=== PATIENT | female | born 1975 | race Caucasian/White ===

== ENCOUNTER 2017-03-03 11:22 | Inpatient (IN) | payer OTHER ==
[~2017-03-03] VITALS: Ht 170.1 cm; Wt 102.7 kg
[~2017-03-03 11:22] MED LIST: ABILIFY10 MG PO; ADIPEX-P37.5 MG PO; ALBUTEROL0.09 MG/A2 IH; ALEVE220 MG PO; AMBIEN10 M1 PO; AMOXICILLIN500 MG PO; ANAPROX DS550 MG PO; ATIVAN1 MG PO; AUGMENTIN 875 M1 TA1 PO; AUGMENTIN 875 M1 TAB PO; AUGMENTIN 875875 MG PO; BACTRIM DS 8001 TA1 PO; BRIN10TA PO; BUSPAR10 MG PO; BUSPAR15 MG PO; CALCIUM 600600 M2 PO; CALCIUM1 CAP PO; CEFTIN500 MG PO; CIPRO250 MG PO; CIPRO500 MG PO; CORTISPORIN SUS10 ML OT; DAYPRO600 M1 PO; DEPAKOTE500 MG PO; DIAZEPAM2 MG PO; ELIMITE 5%60 GM PO; ELMIRON100 MG PO; FIORINAL W/CODE1 TAB PO; FLAGYL250 MG PO; FLAGYL500 MG; FLAGYL500 MG PO; FLEXERIL5 MG PO; FLONASE 0.05% 121 EA NAS; Fioricet 325 MG1 TAB PO; HYCODAN 1.5 MG480 M1 PO; HYDROCODONE BIT1 T11 PO; IBU-8800 MG PO; IBU800 MG PO; IMITREX50 MG PO; K-DUR 20MEQ20 MEQ PO; KEFLEX500 MG PO; KEPPRA1000 MG PO; KEPPRA500 MG PO; LASIX40 MG PO; LOMOTIL 0.025 M1 TA1 PO; LOPERAMIDE2 MG PO; MACROBID100 M1 PO; MIRENA52 MG IU; MIRTAZAPINE30 M2 PO; MOTRIN600 MG PO; MOTRIN800 MG PO; NAPROSYN500 MG PO; NEO-SYNEPHRINE15 M3 NAS; NEURONTIN300 MG PO; NEURONTIN400 MG PO; NICODERM7 MG/24 HR TD; NORFLEX100 MG; NORFLEX100 MG PO; PERCOCET 325 MG1 TA2 PO; PERCOCET 325 MG1 TA6 PO; PHENERGAN W/DM120 ML PO; PREDNISONE10 MG PO; PREDNISONE20 MG PO; PREVACID SOLUTA30 MG PO; PREVACID30 M1 PO; PREVACID30 M2 PO; PREVACID30 MG PO; PROTONIX40 MG PO; PYRIDIUM200 MG PO; Phenergan25 MG PO; ROBAXIN500 MG PO; ROBAXIN750 MG PO; SAPHRIS10 M1 SL; SAPHRIS10 MG SL; SAPHRIS2.5 MG SL; SAPHRIS5 M1 SL; TRAMADOL HCL50 MG PO; ULTRAM50 MG PO; VALIUM10 MG; VALIUM10 MG PO; VALIUM5 MG PO; VENTOLIN H0.09 MG/AC INH; VIBRAMYCIN100 MG PO; VICODIN 5-3001 EACH PO; VICODIN 5/500 505 MG; VICODIN 5/500 505 MG PO; VICODIN 500 MG-1 TAB PO; VICODIN ES 7501 TAB PO; VISTARIL25 M1 PO; VISTARIL50 MG PO; VITAMIN D50000 I2 PO; VITAMIN D50000 I3 PO; VOLTAREN50 M1 PO; VYVANSE30 MG PO; ZITHROMAX Z PA250 MG PO; ZITHROMAX250 MG PO; ZITHROMAX500 MG PO; ZOFRAN ODT4 MG PO; ZOFRAN ODT4 MG SL; ZOFRAN4 MG PO; ZOLOFT100 MG PO; Zofran4 MG PO
[2017-03-03 11:45] VITALS: BP 138/87
[2017-03-03 12:19] LABS: BILIRUBIN NEGATIVE (NEGATIVE); BLOOD TRACE-LYSED (NEGATIVE); CLARITY CLOUDY (CLEAR); COLOR YELLOW (YELLOW); GLUCOSE NEGATIVE (NEGATIVE); KETONE TRACE (NEGATIVE); LEUKO ESTERASE 1+ (NEGATIVE); NITRITE NEGATIVE (NEGATIVE); PROTEIN NEGATIVE (NEGATIVE); UROBILINOGEN 0.2 E.U./dl (0.2-1.0)
[2017-03-03 12:22] LABS: BASO # 0.1 10*3/uL (0.0-0.1); BASO % 0.6 % (0.0-1.0); EOS # 0.2 10*3/uL (0.0-0.4); EOS % 2.2 % (1.0-4.0); HEMATOCRIT 41.3 % (37.0-47.0); HEMOGLOBIN 13.6 g/dl (12.0-16.0); LYMPH # 3.4 10*3/uL (1.3-4.4); LYMPH % 37.9 % (27.0-41.0); MEAN CORPUSCULAR HGB 29.3 pg (27.0-31.0); MEAN CORPUSCULAR HGB CONC 32.9 g/dl (33.0-37.0); MEAN PLATELET VOLUME 12.4 fl (9.6-12.3); MONO # 0.6 10*3/uL (0.1-1.0); MONO % 6.6 % (3.0-9.0); NEUT # 4.7 10*3/uL (2.3-7.9); NEUT % 52.4 % (47.0-73.0); PLATELET COUNT AUTOMATED 211 10*3/uL (130-400); RED BLOOD COUNT 4.64 10*6/uL (4.10-5.10); WHITE BLOOD COUNT 9.1 10*3/uL (4.8-10.8)
[2017-03-03 12:39] LABS: ALBUMIN 3.4 gm/dl (3.1-4.5); ALKALINE PHOSPHATASE 57 U/L (45-117); BILIRUBIN, TOTAL 0.3 mg/dl (0.2-1.0); BUN 12 mg/dl (7-24); C-REACTIVE PROTEIN 0.68 MG/DL (0-0.3); CARBON DIOXIDE 27 mmol/L (21-32); CHLORIDE 108 mmol/L (98-107); EST GLOM FILT AFRICAN AMERICAN > 60 ml/min; GLUCOSE 99 mg/dL (65-99); POTASSIUM 4.4 mmol/L (3.5-5.1); SGOT/AST 8 IU/L (3-35); SGPT/ALT 17 U/L (12-78); SODIUM 142 mmol/L (136-145)
[2017-03-03 12:44] LABS: BACTERIA 2+; EPITHELIAL CELLS 20-25; URINE REFLEX COMMENT YES (NO)
[2017-03-03] MEDS ORDERED: POTASSIUM CHLO20 ME4 PO (13:50)
[2017-03-03] MEDS ORDERED: TRINTELLIX20 MG PO (13:50)
[2017-03-03] MEDS ORDERED: VITAMIN D50000 I3 PO (13:50)
[2017-03-03 13:51] VITALS: BP 114/53
[2017-03-03] MEDS ORDERED: AMITRIPTYLINE25 MG PO (13:51)
[2017-03-03 17:11] VITALS: BP 129/81
[2017-03-03 20:00] VITALS: BP 119/72
[2017-03-04] VITALS: BP 126/77
[2017-03-04 04:31] VITALS: BP 121/77
[2017-03-04 07:42] LABS: BASO # 0.1 10*3/uL (0.0-0.1); BASO % 0.6 % (0.0-1.0); EOS # 0.2 10*3/uL (0.0-0.4); EOS % 2.8 % (1.0-4.0); HEMOGLOBIN 12.7 g/dl (12.0-16.0); LYMPH # 3.4 10*3/uL (1.3-4.4); MEAN CELL VOLUME 88.2 fl (81.0-99.0); MEAN CORPUSCULAR HGB 28.7 pg (27.0-31.0); MEAN CORPUSCULAR HGB CONC 32.6 g/dl (33.0-37.0); MEAN PLATELET VOLUME 12.7 fl (9.6-12.3); MONO # 0.5 10*3/uL (0.1-1.0); MONO % 6.1 % (3.0-9.0); NEUT % 49.1 % (47.0-73.0); PLATELET COUNT AUTOMATED 187 10*3/uL (130-400); RED BLOOD COUNT 4.42 10*6/uL (4.10-5.10); RED CELL DISTRI WIDTH 12.9 % (0-14.5); WHITE BLOOD COUNT 8.2 10*3/uL (4.8-10.8)
[2017-03-04 07:58] LABS: PROTHROMBIN TIME 10.7 SECONDS (9.0-12.4)
[2017-03-04 08:00] VITALS: BP 138/64
[2017-03-04 08:00] LABS: CHLORIDE 105 mmol/L (98-107); SODIUM 139 mmol/L (136-145)
[2017-03-04 08:16] LABS: BUN 7 mg/dl (7-24); CARBON DIOXIDE 28 mmol/L (21-32); CHOLESTEROL 209 mg/dL (<200); EST GLOM FILT AFRICAN AMERICAN > 60 ml/min; FREE T4 0.85 ng/dl (0.76-1.46); GLUCOSE 90 mg/dL (65-99); HDL CHOLESTEROL 31 mg/dl (40-60); TRIGLYCERIDES 482 mg/dl (<150)
[2017-03-04 08:19] LABS: POTASSIUM 3.4 mmol/L (3.5-5.1)
[2017-03-04 12:00] VITALS: BP 128/78
[2017-03-04 16:28] VITALS: BP 114/64
[2017-03-04 20:00] VITALS: BP 120/62
[2017-03-05] VITALS: BP 109/52
[2017-03-05 06:29] LABS: BUN 13 mg/dl (7-24); CARBON DIOXIDE 28 mmol/L (21-32); CHLORIDE 108 mmol/L (98-107); EST GLOM FILT AFRICAN AMERICAN > 60 ml/min; GLUCOSE 106 mg/dL (65-99); POTASSIUM 4.2 mmol/L (3.5-5.1); SODIUM 141 mmol/L (136-145)
[2017-03-05 08:00] VITALS: BP 109/71
[2017-03-05] MEDS ORDERED: D-1000 185 MG-11 TAB PO (11:58)
[2017-03-05] MEDS ORDERED: SIMVASTATIN40 MG PO (11:58)
[2017-03-05] MEDS ORDERED: FLAGYL500 MG PO (11:58)
[2017-03-05] MEDS ORDERED: LEVAQUIN750 M1 PO (11:58)
[2017-03-05 12:00] VITALS: BP 136/78
[2017-03-05] MEDS ORDERED: NORCO 5-325 TA1 EACH PO (14:47)
== END 2017-03-05 15:22 | disposition home or self-care (01) | DRG 392 ==
LOC: ED 11:22 → 5E 15:19 → EDHOLD 15:19 → 5E 16:27
PROVIDERS: Emergency Medicine; Internal Medicine Hospice and Palliative Medicine
DX: K57.32 Diverticulitis of large intestine without perforation or abscess without bleeding (principal); E44.0 Moderate protein-calorie malnutrition; E87.8 Other disorders of electrolyte and fluid balance, not elsewhere classified; K76.0 Fatty (change of) liver, not elsewhere classified; F31.89 Other bipolar disorder; F12.10 Cannabis abuse, uncomplicated; G40.909 Epilepsy, unspecified, not intractable, without status epilepticus; F17.200 Nicotine dependence, unspecified, uncomplicated; M54.5 Low back pain; K21.9 Gastro-esophageal reflux disease without esophagitis; N83.201 Unspecified ovarian cyst, right side; F41.1 Generalized anxiety disorder; N30.10 Interstitial cystitis (chronic) without hematuria; E55.9 Vitamin D deficiency, unspecified; Z90.710 Acquired absence of both cervix and uterus; Z98.51 Tubal ligation status; Z84.1 Family history of disorders of kidney and ureter; Z82.49 Family history of ischemic heart disease and other diseases of the circulatory system; Z82.61 Family history of arthritis; Z88.1 Allergy status to other antibiotic agents; Z79.899 Other long term (current) drug therapy; Z71.6 Tobacco abuse counseling; Z68.35 Body mass index [BMI] 35.0-35.9, adult

== ENCOUNTER 2017-03-13 11:03 | Emergency (ER) | payer OTHER ==
[~2017-03-13] VITALS: Ht 170.1 cm; Wt 102.5 kg
[~2017-03-13 11:03] MED LIST changes: +AMITRIPTYLINE25 MG PO; +D-1000 185 MG-11 TAB PO; +LEVAQUIN750 M1 PO; +NORCO 5-325 TA1 EACH PO; +POTASSIUM CHLO20 ME4 PO; +SIMVASTATIN40 MG PO; +TRINTELLIX20 MG PO
[2017-03-13 11:15] VITALS: BP 119/57
[2017-03-13] MEDS ORDERED: NYSTATIN100000 U/M PO (11:38)
== END 2017-03-13 11:49 | disposition home or self-care (01) ==
LOC: ED 11:03
DX: B37.0 Candidal stomatitis (principal); F17.200 Nicotine dependence, unspecified, uncomplicated; Z90.710 Acquired absence of both cervix and uterus; Z98.51 Tubal ligation status; Z98.890 Other specified postprocedural states; Z88.1 Allergy status to other antibiotic agents

== ENCOUNTER 2017-05-10 11:38 | Emergency (ER) | payer OTHER ==
[~2017-05-10] VITALS: Wt 107.0 kg
[~2017-05-10 11:38] MED LIST changes: +NYSTATIN100000 U/M PO
[2017-05-10 11:43] VITALS: BP 135/87
[2017-05-10 12:01] LABS: BASO % 0.4 % (0.0-1.0); EOS # 0.2 10*3/uL (0.0-0.4); EOS % 1.7 % (1.0-4.0); HEMATOCRIT 40.7 % (37.0-47.0); HEMOGLOBIN 13.3 g/dl (12.0-16.0); LYMPH # 3.1 10*3/uL (1.3-4.4); LYMPH % 30.1 % (27.0-41.0); MEAN CELL VOLUME 88.3 fl (81.0-99.0); MEAN CORPUSCULAR HGB 28.9 pg (27.0-31.0); MEAN CORPUSCULAR HGB CONC 32.7 g/dl (33.0-37.0); MEAN PLATELET VOLUME 13.1 fl (9.6-12.3); MONO # 0.7 10*3/uL (0.1-1.0); NEUT # 6.3 10*3/uL (2.3-7.9); NEUT % 60.4 % (47.0-73.0); PLATELET COUNT AUTOMATED 193 10*3/uL (130-400); RED BLOOD COUNT 4.61 10*6/uL (4.10-5.10); RED CELL DISTRI WIDTH 13.2 % (0-14.5); WHITE BLOOD COUNT 10.4 10*3/uL (4.8-10.8)
[2017-05-10 12:17] LABS: ALBUMIN 3.3 gm/dl (3.1-4.5); ALKALINE PHOSPHATASE 64 U/L (45-117); BILIRUBIN, TOTAL 0.2 mg/dl (0.2-1.0); BUN 10 mg/dl (7-24); CARBON DIOXIDE 27 mmol/L (21-32); CHLORIDE 106 mmol/L (98-107); EST GLOM FILT AFRICAN AMERICAN > 60 ml/min; GLUCOSE 96 mg/dL (65-99); POTASSIUM 4.6 mmol/L (3.5-5.1); SGOT/AST 8 IU/L (3-35); SGPT/ALT 16 U/L (12-78); SODIUM 140 mmol/L (136-145); TOTAL PROTEIN 6.9 gm/dL (6.4-8.2)
[2017-05-10] MEDS ORDERED: ZOFRAN4 MG PO (13:38)
[2017-05-10] MEDS ORDERED: NAPROSYN500 MG PO (13:38)
[2017-05-10] MEDS ORDERED: LOMOTIL 0.025 M1 TA1 PO (13:38)
== END 2017-05-10 14:32 | disposition home or self-care (01) ==
LOC: ED 11:38
PROVIDERS: Nurse Practitioner Family
DX: R19.7 Diarrhea, unspecified (principal); B34.9 Viral infection, unspecified; R03.0 Elevated blood-pressure reading, without diagnosis of hypertension; F17.200 Nicotine dependence, unspecified, uncomplicated; F12.10 Cannabis abuse, uncomplicated; Z98.51 Tubal ligation status; Z90.710 Acquired absence of both cervix and uterus; Z98.890 Other specified postprocedural states; Z79.899 Other long term (current) drug therapy; Z88.1 Allergy status to other antibiotic agents

== ENCOUNTER 2017-05-17 10:45 | Emergency (ER) | payer OTHER ==
[~2017-05-17] VITALS: Ht 170.1 cm; Wt 101.2 kg
[2017-05-17] MEDS ORDERED: METRONIDAZOLE500 M1 PO (11:01)
[2017-05-17 11:02] VITALS: BP 114/76
[2017-05-17] MEDS ORDERED: CIPRO250 MG PO (11:02)
[2017-05-17] MEDS ORDERED: ALBUTEROL2.5 MG/0.5 INH (11:18)
[2017-05-17] MEDS ORDERED: MEDROL DOSEPAK4 MG PO (11:18)
[2017-05-17] MEDS ORDERED: PEPCID20 MG PO (11:18)
== END 2017-05-17 11:34 | disposition home or self-care (01) ==
LOC: ED 10:45
DX: T78.40XA Allergy, unspecified, initial encounter (principal); G89.29 Other chronic pain; M54.5 Low back pain; G40.909 Epilepsy, unspecified, not intractable, without status epilepticus; K57.32 Diverticulitis of large intestine without perforation or abscess without bleeding; K21.9 Gastro-esophageal reflux disease without esophagitis; F12.10 Cannabis abuse, uncomplicated; E78.5 Hyperlipidemia, unspecified; F17.200 Nicotine dependence, unspecified, uncomplicated; Z90.89 Acquired absence of other organs; Z90.710 Acquired absence of both cervix and uterus; Z98.51 Tubal ligation status; Z88.1 Allergy status to other antibiotic agents; Z79.899 Other long term (current) drug therapy; Y92.9 Unspecified place or not applicable

== ENCOUNTER → 2017-06-24 | Outpatient (CLI) | payer OTHER ==
[~2017-06-24] MED LIST changes: +ALBUTEROL2.5 MG/0.5 INH; +MEDROL DOSEPAK4 MG PO; +METRONIDAZOLE500 M1 PO; +PEPCID20 MG PO
[2017-06-24 08:20] LABS: BASO # 0.1 10*3/uL (0.0-0.1); BASO % 0.8 % (0.0-1.0); EOS # 0.2 10*3/uL (0.0-0.4); EOS % 1.8 % (1.0-4.0); HEMATOCRIT 41.3 % (37.0-47.0); HEMOGLOBIN 13.7 g/dl (12.0-16.0); LYMPH # 3.1 10*3/uL (1.3-4.4); LYMPH % 31.7 % (27.0-41.0); MEAN CELL VOLUME 89.4 fl (81.0-99.0); MEAN CORPUSCULAR HGB 29.7 pg (27.0-31.0); MEAN CORPUSCULAR HGB CONC 33.2 g/dl (33.0-37.0); MEAN PLATELET VOLUME 12.6 fl (9.6-12.3); MONO # 0.7 10*3/uL (0.1-1.0); NEUT # 5.7 10*3/uL (2.3-7.9); NEUT % 58.3 % (47.0-73.0); PLATELET COUNT AUTOMATED 208 10*3/uL (130-400); RED BLOOD COUNT 4.62 10*6/uL (4.10-5.10); RED CELL DISTRI WIDTH 13.1 % (0-14.5); WHITE BLOOD COUNT 9.8 10*3/uL (4.8-10.8)
== END | disposition home or self-care (01) ==
LOC: LAB 07:58
PROVIDERS: Internal Medicine Gastroenterology
DX: R19.7 Diarrhea, unspecified (principal)

== ENCOUNTER 2017-07-31 13:05 | Emergency (ER) | payer OTHER ==
[~2017-07-31] VITALS: Ht 170.1 cm; Wt 101.2 kg
[2017-07-31 13:17] VITALS: BP 121/75
[2017-07-31] MEDS ORDERED: NAPROSYN500 MG PO (13:33)
[2017-07-31] MEDS ORDERED: 'PARAFON FORTE500 M1 PO (13:33)
[2017-07-31 14:53] LABS: BILIRUBIN 1+ (NEGATIVE); BLOOD NEGATIVE (NEGATIVE); CLARITY SL CLOUDY (CLEAR); COLOR YELLOW (YELLOW); GLUCOSE NEGATIVE (NEGATIVE); KETONE 1+ (NEGATIVE); LEUKO ESTERASE NEGATIVE (NEGATIVE); NITRITE NEGATIVE (NEGATIVE); SPECIFIC GRAVITY 1.025 (1.005-1.030); UROBILINOGEN 0.2 E.U./dl (0.2-1.0)
[2017-07-31 15:05] LABS: WBC 0-2 wbc/hpf (0-5)
[2017-07-31 15:06] LABS: BACTERIA 3+
== END 2017-07-31 15:14 | disposition home or self-care (01) ==
LOC: ED 13:05
PROVIDERS: Nurse Practitioner Family
DX: T14.8XXA Other injury of unspecified body region, initial encounter (principal); F31.9 Bipolar disorder, unspecified; M54.9 Dorsalgia, unspecified; Z88.1 Allergy status to other antibiotic agents; G89.29 Other chronic pain; G40.909 Epilepsy, unspecified, not intractable, without status epilepticus; K21.9 Gastro-esophageal reflux disease without esophagitis; I25.10 Atherosclerotic heart disease of native coronary artery without angina pectoris; E78.2 Mixed hyperlipidemia; F12.10 Cannabis abuse, uncomplicated; W10.8XXA Fall (on) (from) other stairs and steps, initial encounter; Y93.89 Activity, other specified; Y92.89 Other specified places as the place of occurrence of the external cause; Y99.8 Other external cause status

== ENCOUNTER 2017-09-18 08:58 | Emergency (ER) | payer OTHER ==
[~2017-09-18] VITALS: Ht 170.1 cm; Wt 90.7 kg
--- NOTE | ~2017-09-18 | EKG ---
[place], [place] ELECTROCARDIOGRAM REPORT NAME: INOCENCIA FERGUSON UNIT #: [id number] ROOM: DOCTOR: JT SHELTON MD BIRTHDATE: [birth year] DOS: 09/18/2017 TIME: 0917 hours. FINDINGS: 1. Normal sinus rhythm at 70 beats per minute. 2. Low voltage in limb leads. 3. The tracing is otherwise normal. 4. No previous tracing is available for comparison. JT SHELTON MD CM:EKGRPT:ELECTROCARDIOGRAM REPORT [id number] JT SHELTON MD
[~2017-09-18 08:58] MED LIST changes: +'PARAFON FORTE500 M1 PO
[2017-09-18 09:21] LABS: BASO # 0.1 10*3/uL (0.0-0.1); BASO % 0.7 % (0.0-1.0); EOS # 0.1 10*3/uL (0.0-0.4); EOS % 1.6 % (1.0-4.0); HEMATOCRIT 38.5 % (37.0-47.0); HEMOGLOBIN 12.7 g/dl (12.0-16.0); LYMPH # 2.5 10*3/uL (1.3-4.4); LYMPH % 30.6 % (27.0-41.0); MEAN CELL VOLUME 87.1 fl (81.0-99.0); MEAN CORPUSCULAR HGB 28.7 pg (27.0-31.0); MEAN PLATELET VOLUME 12.9 fl (9.6-12.3); MONO # 0.5 10*3/uL (0.1-1.0); MONO % 5.6 % (3.0-9.0); PLATELET COUNT AUTOMATED 204 10*3/uL (130-400); RED BLOOD COUNT 4.42 10*6/uL (4.10-5.10); RED CELL DISTRI WIDTH 13.1 % (0-14.5); WHITE BLOOD COUNT 8.2 10*3/uL (4.8-10.8)
[2017-09-18 09:37] LABS: ALBUMIN 3.2 gm/dl (3.1-4.5); ALKALINE PHOSPHATASE 60 U/L (45-117); BUN 11 mg/dl (7-24); CHLORIDE 108 mmol/L (98-107); POTASSIUM 4.1 mmol/L (3.5-5.1); SGOT/AST 6 IU/L (3-35); SGPT/ALT 10 U/L (12-78); SODIUM 140 mmol/L (136-145); TOTAL PROTEIN 6.8 gm/dL (6.4-8.2); VALPROIC ACID (DEPAKENE) 81.3 ug/ml (50-100)
[2017-09-18 09:41] LABS: TROPONIN I < 0.015 ng/ml (<0.045)
[2017-09-18 10:17] LABS: BILIRUBIN NEGATIVE (NEGATIVE); BLOOD NEGATIVE (NEGATIVE); CLARITY CLEAR (CLEAR); COLOR YELLOW (YELLOW); GLUCOSE NEGATIVE (NEGATIVE); KETONE NEGATIVE (NEGATIVE); LEUKO ESTERASE NEGATIVE (NEGATIVE); NITRITE NEGATIVE (NEGATIVE); UROBILINOGEN 0.2 E.U./dl (0.2-1.0)
[2017-09-18 10:24] LABS: BACTERIA 1+
[2017-09-18 10:33] LABS: URINE AMPHETAMINES < 1000 (1000ng/ml); URINE BARBITURATES < 200 (200ng/ml); URINE BENZODIAZEPINES < 200 (200ng/ml); URINE CANNABINOIDS (THC) > 50 (50ng/ml); URINE COCAINE < 300 (300ng/ml); URINE METHADONE < 300 (300ng/ml); URINE OPIATES < 300 (300ng/ml)
[2017-09-18 10:53] LABS: URINE PHENCYCLIDINE < 25 (25ng/ml)
[2017-09-18 11:35] VITALS: BP 130/88
== END 2017-09-18 12:25 | disposition short-term general hospital (02) ==
LOC: ED 08:58
PROVIDERS: Nurse Practitioner Family
DX: R56.9 Unspecified convulsions (principal); R03.0 Elevated blood-pressure reading, without diagnosis of hypertension; F17.210 Nicotine dependence, cigarettes, uncomplicated; Z90.710 Acquired absence of both cervix and uterus; Z98.51 Tubal ligation status; Z90.89 Acquired absence of other organs; Z79.899 Other long term (current) drug therapy; Z88.1 Allergy status to other antibiotic agents

== ENCOUNTER 2017-09-20 18:16 | Emergency (ER) | payer OTHER ==
[~2017-09-20] VITALS: Ht 160 cm; Wt 99.8 kg
--- NOTE | ~2017-09-20 | EKG ---
[place], [place] ELECTROCARDIOGRAM REPORT NAME: INOCENCIA FERGUSON UNIT #: [id number] ROOM: DOCTOR: JT SHELTON MD BIRTHDATE: [birth year] DOS: 09/20/2017 TIME: 1828 hours. FINDINGS: 1. Sinus tachycardia at 120 beats per minute 2. The tracing is probably normal. 3. No previous tracing is available for comparison. JT SHELTON MD CM:EKGRPT:ELECTROCARDIOGRAM REPORT [id number] JT SHELTON MD
[2017-09-20 18:42] LABS: BASO # 0.1 10*3/uL (0.0-0.1); BASO % 0.5 % (0.0-1.0); EOS # 0.3 10*3/uL (0.0-0.4); EOS % 1.9 % (1.0-4.0); HEMATOCRIT 44.7 % (37.0-47.0); HEMOGLOBIN 14.9 g/dl (12.0-16.0); LYMPH # 4.9 10*3/uL (1.3-4.4); LYMPH % 32.9 % (27.0-41.0); MEAN CORPUSCULAR HGB CONC 33.3 g/dl (33.0-37.0); MEAN PLATELET VOLUME 13.2 fl (9.6-12.3); MONO # 0.9 10*3/uL (0.1-1.0); NEUT # 8.6 10*3/uL (2.3-7.9); NEUT % 58.4 % (47.0-73.0); PLATELET COUNT AUTOMATED 285 10*3/uL (130-400); RED BLOOD COUNT 5.14 10*6/uL (4.10-5.10); RED CELL DISTRI WIDTH 13.1 % (0-14.5); WHITE BLOOD COUNT 14.8 10*3/uL (4.8-10.8)
[2017-09-20 18:53] LABS: ACT PARTIAL THROMBO TIME 25.6 SECONDS (20.8-31.5)
[2017-09-20 18:59] LABS: ALBUMIN 3.7 gm/dl (3.1-4.5); ALKALINE PHOSPHATASE 67 U/L (45-117); BETA-HCG, QUANT < 1.0 mIU/mL (1-3); BUN 12 mg/dl (7-24); CHLORIDE 104 mmol/L (98-107); CREATININE 0.98 mg/dL (0.55-1.02); LIPASE 144 U/L (73-393); POTASSIUM 3.7 mmol/L (3.5-5.1); SGOT/AST 7 IU/L (3-35); SGPT/ALT 14 U/L (12-78); SODIUM 139 mmol/L (136-145); TOTAL PROTEIN 7.7 gm/dL (6.4-8.2); TROPONIN I < 0.015 ng/ml (<0.045)
[2017-09-20 19:08] LABS: VALPROIC ACID (DEPAKENE) 92.3 ug/ml (50-100)
[2017-09-20 21:01] VITALS: BP 127/85
== END 2017-09-20 21:08 | disposition short-term general hospital (02) ==
LOC: ED 18:16
PROVIDERS: Emergency Medicine
DX: R56.9 Unspecified convulsions (principal); E78.2 Mixed hyperlipidemia; K21.9 Gastro-esophageal reflux disease without esophagitis; Z88.1 Allergy status to other antibiotic agents; Z87.891 Personal history of nicotine dependence

== ENCOUNTER 2018-01-05 12:13 | Emergency (ER) | payer OTHER ==
[~2018-01-05] VITALS: Ht 170.1 cm; Wt 96.6 kg
[2018-01-05 12:18] VITALS: BP 142/87
[2018-01-05 12:40] LABS: BASO # 0.1 10*3/uL (0.0-0.1); BASO % 0.7 % (0.0-1.0); EOS # 0.2 10*3/uL (0.0-0.4); EOS % 1.8 % (1.0-4.0); HEMATOCRIT 42.4 % (37.0-47.0); HEMOGLOBIN 13.9 g/dl (12.0-16.0); LYMPH # 2.9 10*3/uL (1.3-4.4); LYMPH % 32.8 % (27.0-41.0); MEAN CELL VOLUME 87.6 fl (81.0-99.0); MEAN CORPUSCULAR HGB 28.7 pg (27.0-31.0); MEAN CORPUSCULAR HGB CONC 32.8 g/dl (33.0-37.0); MEAN PLATELET VOLUME 12.2 fl (9.6-12.3); MONO # 0.6 10*3/uL (0.1-1.0); MONO % 7.3 % (3.0-9.0); NEUT % 56.9 % (47.0-73.0); PLATELET COUNT AUTOMATED 232 10*3/uL (130-400); RED BLOOD COUNT 4.84 10*6/uL (4.10-5.10); RED CELL DISTRI WIDTH 13.1 % (0-14.5); WHITE BLOOD COUNT 8.7 10*3/uL (4.8-10.8)
[2018-01-05 12:55] LABS: ALBUMIN 3.5 gm/dl (3.1-4.5); ALKALINE PHOSPHATASE 58 U/L (45-117); BUN 10 mg/dl (7-24); CHLORIDE 103 mmol/L (98-107); CREATININE 0.68 mg/dL (0.55-1.02); POTASSIUM 3.9 mmol/L (3.5-5.1); SGOT/AST 9 IU/L (3-35); SGPT/ALT 16 U/L (12-78); SODIUM 139 mmol/L (136-145); TOTAL PROTEIN 7.2 gm/dL (6.4-8.2)
[2018-01-05 13:07] LABS: BILIRUBIN 2+ (NEGATIVE); BLOOD NEGATIVE (NEGATIVE); CLARITY CLOUDY (CLEAR); GLUCOSE TRACE (NEGATIVE); KETONE 1+ (NEGATIVE); LEUKO ESTERASE NEGATIVE (NEGATIVE); NITRITE POSITIVE (NEGATIVE); SPECIFIC GRAVITY 1.025 (1.005-1.030)
[2018-01-05 13:11] LABS: COLOR ORANGE (YELLOW)
[2018-01-05 13:15] LABS: BACTERIA 1+; EPITHELIAL CELLS 21-30; MUCOUS 2+; RBC 0-2 rbc/hpf (0-2)
[2018-01-05] MEDS ORDERED: ZOFRAN4 MG PO (13:22)
[2018-01-05] MEDS ORDERED: SEPTDS PO (13:22)
== END 2018-01-05 13:45 | disposition home or self-care (01) ==
LOC: ED 12:13
PROVIDERS: Nurse Practitioner Family
DX: N39.0 Urinary tract infection, site not specified (principal); R03.0 Elevated blood-pressure reading, without diagnosis of hypertension; K21.9 Gastro-esophageal reflux disease without esophagitis; G89.29 Other chronic pain; Z88.1 Allergy status to other antibiotic agents; Z90.710 Acquired absence of both cervix and uterus

== ENCOUNTER 2018-01-26 17:09 | Emergency (ER) | payer OTHER ==
[~2018-01-26] VITALS: Ht 170.1 cm; Wt 96.6 kg
[~2018-01-26 17:09] MED LIST changes: +SEPTDS PO
[2018-01-26] MEDS ORDERED: ZOCOR40 MG PO (17:16)
[2018-01-26 17:19] VITALS: BP 145/78
[2018-01-26] MEDS ORDERED: MEDROL DOSEPAK4 MG PO (17:37)
[2018-01-26] MEDS ORDERED: CYCLOBENZAPRINE10 MG PO (17:37)
== END 2018-01-26 17:49 | disposition home or self-care (01) ==
LOC: ED 17:09
DX: M54.5 Low back pain (principal); F17.200 Nicotine dependence, unspecified, uncomplicated; F12.10 Cannabis abuse, uncomplicated; G89.29 Other chronic pain; K21.9 Gastro-esophageal reflux disease without esophagitis; E78.2 Mixed hyperlipidemia; G40.909 Epilepsy, unspecified, not intractable, without status epilepticus; Z90.710 Acquired absence of both cervix and uterus; Z98.890 Other specified postprocedural states; Z79.899 Other long term (current) drug therapy; Z88.1 Allergy status to other antibiotic agents

== ENCOUNTER → 2018-02-16 | Outpatient (CLI) | payer OTHER ==
[~2018-02-16] MED LIST changes: +CYCLOBENZAPRINE10 MG PO; +ZOCOR40 MG PO
== END | disposition home or self-care (01) ==
LOC: CARD 10:47
DX: F15.90 Other stimulant use, unspecified, uncomplicated (principal)

== ENCOUNTER 2018-05-01 10:59 | Emergency (ER) | payer OTHER ==
[~2018-05-01] VITALS: Ht 170.1 cm; Wt 101.6 kg
[2018-05-01 11:00] VITALS: BP 121/74
[2018-05-01] MEDS ORDERED: CLARITIN10 MG PO (11:08)
[2018-05-01] MEDS ORDERED: FLONASE ALLERG9.9 ML NAS (11:08)
[2018-05-01] MEDS ORDERED: ROBITUSSIN DM 105 ML PO (11:08)
[2018-05-01] MEDS ORDERED: PREDNISONE10 MG PO (11:08)
== END 2018-05-01 11:48 | disposition home or self-care (01) ==
LOC: ED 10:59
DX: B34.9 Viral infection, unspecified (principal); R03.0 Elevated blood-pressure reading, without diagnosis of hypertension; F17.200 Nicotine dependence, unspecified, uncomplicated; Z88.1 Allergy status to other antibiotic agents; Z79.899 Other long term (current) drug therapy; Z90.710 Acquired absence of both cervix and uterus; Z98.51 Tubal ligation status

== ENCOUNTER 2018-05-03 14:35 | Inpatient (IN) | payer OTHER ==
[~2018-05-03] VITALS: Ht 170.2 cm; Wt 89.0 kg
--- NOTE | ~2018-05-03 | EKG ---
[place], [place] ELECTROCARDIOGRAM REPORT NAME: INOCENCIA FERGUSON UNIT #: [id number] ROOM: 520 DOCTOR: LUCY DRAFT REPORT BIRTHDATE: [birth year] [facility] Test Date: 2018-05-03 Test Time: 15:14:20 Pat Name: INOCENCIA FERGUSON Department: ER Room: 5 Gender: F Milk [employer] Driver: FARIDEH : 1975 Requested By: ROSELIA DUNN Order Number: [id number] Reading MD: Padilla Paris MD Measurements Intervals Hoffman Rate: 77 P: 64 [place]: 162 QRS: 50 QRSD: 93 T: 28 QT: 380 QTc: 431 Interpretive Statements Sinus rhythm Low voltage, precordial leads Electronically Signed On 05-04-2018 19:01:30 PDT by aPdilla Paris MD CM:EKGRPT:ELECTROCARDIOGRAM REPORT [id number] ROSELIA AYALA DRAFT REPORT ROSELIA DUNN MD
[~2018-05-03 14:35] MED LIST changes: +CLARITIN10 MG PO; +FLONASE ALLERG9.9 ML NAS; +ROBITUSSIN DM 105 ML PO
[2018-05-03 14:37] VITALS: BP 122/92
[2018-05-03] MEDS ORDERED: VITAMIN D50000 UNIT PO (14:58)
[2018-05-03] MEDS ORDERED: VYVANSE20 MG PO (14:58)
[2018-05-03 15:20] LABS: BASO # 0.1 10*3/uL (0.0-0.1); BASO % 0.4 % (0.0-1.0); HEMATOCRIT 40.2 % (37.0-47.0); LYMPH # 1.8 10*3/uL (1.3-4.4); LYMPH % 14.1 % (27.0-41.0); MEAN CELL VOLUME 88.2 fl (81.0-99.0); MEAN CORPUSCULAR HGB 28.5 pg (27.0-31.0); MEAN CORPUSCULAR HGB CONC 32.3 g/dl (33.0-37.0); MEAN PLATELET VOLUME 12.5 fl (9.6-12.3); MONO # 0.2 10*3/uL (0.1-1.0); MONO % 1.3 % (3.0-9.0); NEUT # 10.5 10*3/uL (2.3-7.9); NEUT % 83.3 % (47.0-73.0); PLATELET COUNT AUTOMATED 246 10*3/uL (130-400); RED BLOOD COUNT 4.56 10*6/uL (4.10-5.10); RED CELL DISTRI WIDTH 13.1 % (0-14.5); WHITE BLOOD COUNT 12.6 10*3/uL (4.8-10.8)
[2018-05-03 15:28] LABS: ACT PARTIAL THROMBO TIME 23.1 SECONDS (20.8-31.5)
[2018-05-03 15:37] LABS: ALBUMIN 3.3 gm/dl (3.1-4.5); ALKALINE PHOSPHATASE 63 U/L (45-117); BUN 12 mg/dl (7-24); CHLORIDE 109 mmol/L (98-107); CREATININE 1.01 mg/dL (0.55-1.02); POTASSIUM 3.9 mmol/L (3.5-5.1); SGOT/AST 3 IU/L (3-35); SGPT/ALT 15 U/L (12-78); SODIUM 142 mmol/L (136-145); TOTAL PROTEIN 6.8 gm/dL (6.4-8.2)
[2018-05-03 15:39] LABS: TROPONIN I < 0.015 ng/ml (<0.045)
[2018-05-03 15:59] VITALS: BP 124/57
[2018-05-03 15:59] LABS: ABG HCO3 18.5 mmol/l (22-26); ABG O2 SATURATION 97.8 % (95-97); ARTERIAL BLOOD GAS PH 7.436 (7.35-7.45); ARTERIAL BLOOD GAS PO2 89.2 mmHg (80-90)
[2018-05-03 16:02] LABS: BILIRUBIN NEGATIVE (NEGATIVE); BLOOD TRACE-INTACT (NEGATIVE); CLARITY CLEAR (CLEAR); COLOR YELLOW (YELLOW); GLUCOSE NEGATIVE (NEGATIVE); KETONE 1+ (NEGATIVE); LEUKO ESTERASE NEGATIVE (NEGATIVE); NITRITE NEGATIVE (NEGATIVE); UROBILINOGEN 0.2 E.U./dl (0.2-1.0)
[2018-05-03 16:09] LABS: BACTERIA TRACE; EPITHELIAL CELLS 0-2
[2018-05-03 17:20] VITALS: BP 125/73
[2018-05-03] MEDS ORDERED: PROVENTIL HFA6.7 GM INH (18:54)
[2018-05-03 20:00] VITALS: BP 120/68; BP 150/80
[2018-05-04] VITALS: BP 109/48
[2018-05-04 06:45] LABS: MEAN CELL VOLUME 90.7 fl (81.0-99.0); MEAN CORPUSCULAR HGB 28.5 pg (27.0-31.0); MEAN CORPUSCULAR HGB CONC 31.4 g/dl (33.0-37.0); MEAN PLATELET VOLUME 12.6 fl (9.6-12.3); PLATELET COUNT AUTOMATED 208 10*3/uL (130-400); RED BLOOD COUNT 3.86 10*6/uL (4.10-5.10); RED CELL DISTRI WIDTH 13.3 % (0-14.5)
[2018-05-04 06:51] LABS: ALBUMIN 2.8 gm/dl (3.1-4.5); BUN 11 mg/dl (7-24); CHLORIDE 109 mmol/L (98-107); CHOLESTEROL 135 mg/dL (<200); PHOSPHOROUS 3.7 mg/dL (2.5-4.9); POTASSIUM 4.2 mmol/L (3.5-5.1); SGOT/AST 8 IU/L (3-35); SGPT/ALT 13 U/L (12-78); SODIUM 142 mmol/L (136-145)
[2018-05-04 07:01] LABS: ALKALINE PHOSPHATASE 49 U/L (45-117); HDL CHOLESTEROL 37 mg/dl (40-60); LDL CHOLESTEROL 59 mg/dL (9-159); THYROID STIM HORMONE (HS) 0.891 uIU/ml (0.358-4.75); TOTAL PROTEIN 5.8 gm/dL (6.4-8.2); TRIGLYCERIDES 194 mg/dl (<150); VLDL CHOLESTEROL 39 mg/dL (6-40)
[2018-05-04 07:13] LABS: PLATELET SUFFICIENCY NORMAL (NORMAL); TOTAL CELLS COUNTED 100 #CELLS
[2018-05-04 08:00] VITALS: BP 140/69
[2018-05-04 08:49] LABS: VITAMIN D, 25-HYDROXY 21.8 ng/mL (30-100)
[2018-05-04 12:00] VITALS: BP 119/58
[2018-05-04 16:00] VITALS: BP 122/65
[2018-05-04 20:00] VITALS: BP 113/54
[2018-05-05] VITALS: BP 118/64
[2018-05-05 06:28] LABS: BASO # 0.1 10*3/uL (0.0-0.1); BASO % 0.8 % (0.0-1.0); EOS # 0.2 10*3/uL (0.0-0.4); EOS % 1.9 % (1.0-4.0); HEMATOCRIT 36.5 % (37.0-47.0); HEMOGLOBIN 11.4 g/dl (12.0-16.0); LYMPH # 4.3 10*3/uL (1.3-4.4); LYMPH % 46.1 % (27.0-41.0); MEAN CORPUSCULAR HGB 28.4 pg (27.0-31.0); MEAN CORPUSCULAR HGB CONC 31.2 g/dl (33.0-37.0); MEAN PLATELET VOLUME 12.1 fl (9.6-12.3); MONO # 0.5 10*3/uL (0.1-1.0); MONO % 5.4 % (3.0-9.0); NEUT # 4.1 10*3/uL (2.3-7.9); NEUT % 44.5 % (47.0-73.0); PLATELET COUNT AUTOMATED 219 10*3/uL (130-400); RED BLOOD COUNT 4.01 10*6/uL (4.10-5.10); RED CELL DISTRI WIDTH 13.1 % (0-14.5); WHITE BLOOD COUNT 9.3 10*3/uL (4.8-10.8)
[2018-05-05 06:57] LABS: ALBUMIN 2.9 gm/dl (3.1-4.5); ALKALINE PHOSPHATASE 54 U/L (45-117); BUN 10 mg/dl (7-24); CHLORIDE 104 mmol/L (98-107); CREATININE 0.63 mg/dL (0.55-1.02); POTASSIUM 4.5 mmol/L (3.5-5.1); SGOT/AST 4 IU/L (3-35); SGPT/ALT 15 U/L (12-78); SODIUM 141 mmol/L (136-145)
[2018-05-05 08:00] VITALS: BP 119/70
[2018-05-05] MEDS ORDERED: MUCINEX ER600 MG PO (10:50)
[2018-05-05] MEDS ORDERED: ZITHROMAX250 MG PO (10:50)
[2018-05-05 12:00] VITALS: BP 133/75
== END 2018-05-05 12:44 | disposition home or self-care (01) | DRG 872 ==
LOC: ED 14:35 → 5E 15:53 → EDHOLD 15:53 → 5E 15:58
PROVIDERS: Emergency Medicine; Internal Medicine; Student in an Organized Health Care Education/Training Program
DX: A41.9 Sepsis, unspecified organism (principal); E87.2 Acidosis; E44.0 Moderate protein-calorie malnutrition; E87.8 Other disorders of electrolyte and fluid balance, not elsewhere classified; F31.30 Bipolar disorder, current episode depressed, mild or moderate severity, unspecified; N30.10 Interstitial cystitis (chronic) without hematuria; R65.20 Severe sepsis without septic shock; J45.909 Unspecified asthma, uncomplicated; R73.9 Hyperglycemia, unspecified; M54.5 Low back pain; G89.29 Other chronic pain; G40.909 Epilepsy, unspecified, not intractable, without status epilepticus; K21.9 Gastro-esophageal reflux disease without esophagitis; F41.1 Generalized anxiety disorder; D64.9 Anemia, unspecified; E78.2 Mixed hyperlipidemia; F12.10 Cannabis abuse, uncomplicated; Z87.440 Personal history of urinary (tract) infections; Z90.710 Acquired absence of both cervix and uterus; Z71.6 Tobacco abuse counseling; Z72.0 Tobacco use; Z98.51 Tubal ligation status; Z82.49 Family history of ischemic heart disease and other diseases of the circulatory system; Z82.61 Family history of arthritis; Z84.1 Family history of disorders of kidney and ureter; Z84.89 Family history of other specified conditions; Z88.1 Allergy status to other antibiotic agents; Z79.899 Other long term (current) drug therapy; Z82.3 Family history of stroke; Z68.30 Body mass index [BMI] 30.0-30.9, adult

== ENCOUNTER 2018-12-13 14:39 | Emergency (ER) | payer OTHER ==
[~2018-12-13] VITALS: Ht 170.1 cm; Wt 104.3 kg
[~2018-12-13 14:39] MED LIST changes: +MUCINEX ER600 MG PO; +PROVENTIL HFA6.7 GM INH; +VITAMIN D50000 UNIT PO; +VYVANSE20 MG PO
[2018-12-13 14:40] VITALS: BP 134/84
[2018-12-13] MEDS ORDERED: CEPHALEXIN500 M1 PO (16:47)
[2019-02-12] MEDS ORDERED: AMOXICILLIN500 M2 PO (21:42)
[2019-02-12] MEDS ORDERED: TESSALON PERLE100 M1 PO (21:43)
[2019-03-21] MEDS ORDERED: IBUPROFEN600 MG PO (18:24)
== END 2018-12-13 16:56 | disposition home or self-care (01) ==
LOC: ED 14:39
DX: I80.01 Phlebitis and thrombophlebitis of superficial vessels of right lower extremity (principal); M54.5 Low back pain; F17.200 Nicotine dependence, unspecified, uncomplicated; Z88.1 Allergy status to other antibiotic agents; Z79.899 Other long term (current) drug therapy; Z90.710 Acquired absence of both cervix and uterus; X50.0XXA Overexertion from strenuous movement or load, initial encounter; Y93.89 Activity, other specified; Y92.89 Other specified places as the place of occurrence of the external cause; Y99.8 Other external cause status

== ENCOUNTER 2018-12-17 14:07 | Emergency (ER) | payer OTHER ==
[~2018-12-17] VITALS: Ht 170.1 cm; Wt 104.3 kg
[~2018-12-17 14:07] MED LIST changes: +CEPHALEXIN500 M1 PO
[2018-12-17 14:08] VITALS: BP 126/76
[2018-12-17] MEDS ORDERED: IBUPROFEN600 MG PO ×2 (17:45)
[2019-02-12] MEDS ORDERED: AMOXICILLIN500 M2 PO (21:42)
[2019-02-12] MEDS ORDERED: TESSALON PERLE100 M1 PO (21:43)
[2019-03-21] MEDS ORDERED: IBUPROFEN600 MG PO (18:24)
== END 2018-12-17 17:48 | disposition home or self-care (01) ==
LOC: ED 14:07
DX: I80.01 Phlebitis and thrombophlebitis of superficial vessels of right lower extremity (principal); F12.90 Cannabis use, unspecified, uncomplicated; F17.200 Nicotine dependence, unspecified, uncomplicated; Z90.89 Acquired absence of other organs; Z90.710 Acquired absence of both cervix and uterus; Z98.51 Tubal ligation status; Z79.899 Other long term (current) drug therapy; Z88.1 Allergy status to other antibiotic agents

== ENCOUNTER 2019-05-20 22:43 | Emergency (ER) | payer OTHER ==
[~2019-05-20] VITALS: Ht 170.1 cm; Wt 104.3 kg
[~2019-05-20 22:43] MED LIST changes: +AMOXICILLIN500 M2 PO; +IBUPROFEN600 MG PO; +TESSALON PERLE100 M1 PO
[2019-05-20 22:45] VITALS: BP 135/84
[2019-05-20 23:17] LABS: BILIRUBIN NEGATIVE (NEGATIVE); BLOOD NEGATIVE (NEGATIVE); CLARITY SL CLOUDY (CLEAR); COLOR YELLOW (YELLOW); GLUCOSE NEGATIVE (NEGATIVE); KETONE TRACE (NEGATIVE); LEUKO ESTERASE NEGATIVE (NEGATIVE); NITRITE NEGATIVE (NEGATIVE); SPECIFIC GRAVITY >= 1.030 (1.005-1.030); UROBILINOGEN 0.2 E.U./dl (0.2-1.0)
[2019-05-20 23:23] LABS: BACTERIA 2+; EPITHELIAL CELLS 20-25; MUCOUS TRACE; RBC 0-2 rbc/hpf (0-2); WBC 0-2 wbc/hpf (0-5)
[2019-05-21] MEDS ORDERED: PYRIDIUM200 M1 PO (00:23)
[2019-05-21] MEDS ORDERED: AMINOPHYLLIN200 MG PO (00:23)
== END 2019-05-21 00:39 | disposition home or self-care (01) ==
LOC: ED 22:43
PROVIDERS: Physician Assistant
DX: N39.0 Urinary tract infection, site not specified (principal); F17.200 Nicotine dependence, unspecified, uncomplicated; Z88.1 Allergy status to other antibiotic agents; Z79.899 Other long term (current) drug therapy; Z79.2 Long term (current) use of antibiotics; Z90.710 Acquired absence of both cervix and uterus

== ENCOUNTER 2019-07-05 08:34 | Inpatient (IN) | payer OTHER ==
[2019-07-05] VITALS (8 sets, daily range): BP systolic 116–161; BP diastolic 57–89
[~2019-07-05] VITALS: Ht 170.1 cm; Wt 102.6 kg
[~2019-07-05 08:34] MED LIST changes: +AMINOPHYLLIN200 MG PO; +PYRIDIUM200 M1 PO
[2019-07-05 08:52] LABS: BASO # 0.1 10*3/uL (0.0-0.1); BASO % 0.6 % (0.0-1.0); EOS # 0.2 10*3/uL (0.0-0.4); HEMOGLOBIN 13.7 g/dl (12.0-16.0); LYMPH # 3.4 10*3/uL (1.3-4.4); LYMPH % 38.7 % (27.0-41.0); MEAN CELL VOLUME 88.4 fl (81.0-99.0); MEAN CORPUSCULAR HGB 28.8 pg (27.0-31.0); MEAN CORPUSCULAR HGB CONC 32.6 g/dl (33.0-37.0); MEAN PLATELET VOLUME 12.6 fl (9.6-12.3); MONO # 0.6 10*3/uL (0.1-1.0); MONO % 6.5 % (3.0-9.0); NEUT # 4.6 10*3/uL (2.3-7.9); NEUT % 51.7 % (47.0-73.0); PLATELET COUNT AUTOMATED 252 10*3/uL (130-400); RED BLOOD COUNT 4.75 10*6/uL (4.10-5.10); RED CELL DISTRI WIDTH 13.2 % (0-14.5); WHITE BLOOD COUNT 8.8 10*3/uL (4.8-10.8)
[2019-07-05 09:02] LABS: ACT PARTIAL THROMBO TIME 24.6 SECONDS (20.0-32.1); INTERNATIONAL NORM RATIO 0.9 (2.0-3.5)
--- NOTE | 2019-07-05 09:04 | NUR ---
RESTIN IN BED, APPEARS MORE CALM, RESPS EASY. FAMILY MEMBERS AT BEDSIDE.
[2019-07-05 09:09] LABS: ALBUMIN 3.4 gm/dl (3.1-4.5); ALKALINE PHOSPHATASE 61 U/L (45-117); BUN 13 mg/dl (7-24); CHLORIDE 109 mmol/L (98-107); POTASSIUM 4.1 mmol/L (3.5-5.1); SGOT/AST 8 IU/L (3-35); SGPT/ALT 15 U/L (12-78); SODIUM 139 mmol/L (136-145)
[2019-07-05 09:24] LABS: TROPONIN I < 0.015 ng/ml (<0.045)
--- NOTE | 2019-07-05 09:29 | NUR ---
REQUESTING SOMETHING FOR HER HEADACHE. DR. DUNN NOTIFED.
--- NOTE | 2019-07-05 10:00 | NUR ---
PT SLEEPING, RESPS EASY. EASILY AROUSED. MEDICATED WITH TYLENOL FOR C/O HEADACHE.
--- NOTE | 2019-07-05 11:16 | NUR ---
UP TO BATHROOM, TOLERATED WELL. PT HAS BEEN SLEEPING, TELLS ME CONTINUES TO HAVE HEADACHE BUT CHEST PAIN HAS RESOLVED.
--- NOTE | 2019-07-05 12:08 | NUR ---
A 44, admitted to , under the services of JAMES Hubbard MD with a diagnosis of CHEST PAIN. Chief complaint is HEADACHE. Patient arrived via bed from ER. Monitor applied. Initial assessment completed. Vital signs taken and recorded. JAMES HUBBARD MD notified of admission to the unit. Orders received. See assessment for past medical history, medications and allergies. Patient and/or family oriented to unit. Clothing/patient valuable form completed. JANETH VIRAMONTES
[2019-07-05] MEDS ORDERED: VITAMIN D-32000 UNI1 PO (12:16)
--- NOTE | 2019-07-05 12:52 | NUR ---
CALLED DR. TURNER FOR ORDERS. HE STATES DR. SNOW WILL SEE PT.
--- NOTE | 2019-07-05 12:55 | NUR ---
SPOKE WITH DR. SNOW SHE WILL SEE PT. DIET ORDER PUT IN.
--- NOTE | 2019-07-05 14:27 | NUR ---
C/O HEADACHE, RATES PAIN 7 ON PAIN SCALE 0-10. MEDICATED WITH TYLENOL PO PER PRN ORDER, SEE EMAR. CALL LGIHT IN REACH. SEE SHIFT ASSESSMENT.
--- NOTE | 2019-07-05 15:39 | NUR ---
CALLED DR. GARCIA MADE AWARE CONSULT FOR MEDICAL MANAGEMENT.
--- NOTE | 2019-07-05 16:00 | NUR ---
RESTINGIN BED WITH VISITOR AT HER SIDE. MEDICATION EFFECTIVE. NO NEW C/O. CALL LIGHT IN REACH. SEE SHIFT ASSESSMENT.
--- NOTE | 2019-07-05 17:40 | NUR ---
CALLED DR. GARCIA PT C/O HEADACHE, STATES TYLENOL ISN'T HELPING. HE WILL ORDER SOMETHING.
--- NOTE | 2019-07-05 18:36 | NUR ---
CALLED DR. GARCIA, ASK FOR SOMETHING FOR HEADACHE. HE STATES TEAM [facility] AND SPOKE WITH THEM THEY WILL PUT SOMETHING IN .
--- NOTE | 2019-07-05 18:48 | NUR ---
PT MEDICATED WITH TORADOL IV PER ORDER, SEE EMAR. FOR C/O HEADACHE WORSE ON LEFT SIDE PER PT RATES PAIN 8 ON PAIN SCALE 0-10. CALL LIGHT IN REACH.
--- NOTE | 2019-07-05 19:48 | NUR ---
TORADOL APPEARS EFFECTIVE. PATIENT RESTING QUIETLY IN BED. NO DISTRESS NOTED. CALL LIGHT WITH REACH.
--- NOTE | 2019-07-05 20:11 | NUR ---
INFORMED THAT HOME MEDS HAVE NOT BEEN CONTINUED AND PATIENT IS HAVING HIGH ANXIETY TOWARD THAT
[2019-07-06] VITALS: BP 121/64
--- NOTE | 2019-07-06 01:05 | NUR ---
PATIENT RESTING IN BED WITH EYES CLOSED. RESPS EASY AND REGULAR. BED IN LOWEST POSITION, CALL LIGHT IN REACH
--- NOTE | 2019-07-06 01:51 | NUR ---
24 HR chart check completed.
--- NOTE | 2019-07-06 02:00 | NUR ---
MEDICATED WITH PRN MOTRIN PER REQUEST FOR C/O HEADACHE RATED 7/10 ON A 0/10 PAIN SCALE.
[2019-07-06 08:00] VITALS: BP 115/71; BP 122/80
[2019-07-06 08:03] LABS: CHOLESTEROL 180 mg/dL (<200); TRIGLYCERIDES 334 mg/dl (<150); VLDL CHOLESTEROL 67 mg/dL (6-40)
[2019-07-06 08:05] LABS: HDL CHOLESTEROL 31 mg/dl (40-60); LDL CHOLESTEROL 82 mg/dL (9-159)
--- NOTE | 2019-07-06 09:00 | NUR ---
Ski Patroller in to talk to patient. Patient states lives at home with family. There are few steps in the home. Physician: [facility] Home health services: none Patient's level of ADLs: INDEPENDENT Patient has working utilities: all working DME: none Follow-up physician's appointment after d/c: will be made by hospitalist nurse director upon discharge Does patient want to access PORTAL?: no Discharge plan discussed with patient, family present, she lives at home with family, she is independent in adls and ambulation, she states she will return home when medically stable for discharge, declines any home needs at this time. ELEANOR MALONEY
--- NOTE | 2019-07-06 10:15 | NUR ---
INFORMED CONSENT OBTAINED FOR LEXISCAN NUCLEAR STRESS TEST FOR PRECORDIAL CHEST PAIN WITH DR. ROMEO. RESTING EKG NSR WITH A RESTING HR OF 62 WITH BP OF 140/70. LUNGS CLEAR WITH SPO2 OF 99% ON ROOM AIR. PT COMPLETED A 1:00 LEXISCAN PROTOCOL RECEIVING LEXISCAN 0.4 MG IV OVER 10 SECONDS. HAD NO EKG CHANGES. DID C/O CHEST DISCOMFORT, ABDOMINAL CRAMPING AND SHORTNESS OF BREATH THAT WAS RELIEVED IN RECOVERY. HAD A PEAK HR OF 120 WITH BP OF 130/68. LAST RECOVERY HR OF 94 WITH BP OF 136/70. AWAITING SCANNING IN STABLE CONDITION.
[2019-07-06 12:00] VITALS: BP 137/70
--- NOTE | 2019-07-06 15:57 | NUR ---
Discharge instructions reviewed with patient/family. Patient receptive and verbalizes understanding. Follow-up care arranged. Written instructions given to patient/family. Patient was educated on prescription changes and follow up appointment with on . Patient ambulated from unit with family members and all personal belongings accounted for. BERNIE MITCHELL
[2019-09-26] MEDS ORDERED: AMOXICILLIN500 M2 PO (18:11)
[2019-09-26] MEDS ORDERED: ZYRTEC10 MG PO (18:11)
== END 2019-07-06 16:12 | disposition home or self-care (01) | DRG 243 ==
LOC: ED 08:34 → EDHOLD 11:39 → 4E 11:39
PROVIDERS: Emergency Medicine; Family Medicine; ADMIT Family Medicine
PROC: 4A02XM4 Measurement of Cardiac Total Activity, External Approach (ICD-10-PCS; principal; 2019-07-06)
PROC: 3E073KZ Introduction of Other Diagnostic Substance into Coronary Artery, Percutaneous Approach (ICD-10-PCS; 2019-07-06)
DX: K21.9 Gastro-esophageal reflux disease without esophagitis (principal); F32.9 Major depressive disorder, single episode, unspecified; G43.109 Migraine with aura, not intractable, without status migrainosus; F12.10 Cannabis abuse, uncomplicated; R03.0 Elevated blood-pressure reading, without diagnosis of hypertension; E66.9 Obesity, unspecified; G89.29 Other chronic pain; M54.5 Low back pain; F17.210 Nicotine dependence, cigarettes, uncomplicated; F41.1 Generalized anxiety disorder; E78.2 Mixed hyperlipidemia; G40.909 Epilepsy, unspecified, not intractable, without status epilepticus; Z98.51 Tubal ligation status; Z90.710 Acquired absence of both cervix and uterus; Z82.49 Family history of ischemic heart disease and other diseases of the circulatory system; Z82.61 Family history of arthritis; Z88.1 Allergy status to other antibiotic agents; Z84.89 Family history of other specified conditions; Z82.3 Family history of stroke; Z83.49 Family history of other endocrine, nutritional and metabolic diseases; Z83.79 Family history of other diseases of the digestive system; Z79.899 Other long term (current) drug therapy; Z71.6 Tobacco abuse counseling; Z68.35 Body mass index [BMI] 35.0-35.9, adult

== ENCOUNTER → 2019-08-27 | Outpatient (CLI) | payer OTHER ==
[~2019-08-27] MED LIST changes: +VITAMIN D-32000 UNI1 PO
[2019-08-27 09:14] LABS: BASO # 0.1 10*3/uL (0.0-0.1); BASO % 1.1 % (0.0-1.0); EOS # 0.2 10*3/uL (0.0-0.4); EOS % 2.2 % (1.0-4.0); HEMATOCRIT 44.5 % (37.0-47.0); HEMOGLOBIN 14.4 g/dl (12.0-16.0); LYMPH # 2.7 10*3/uL (1.3-4.4); LYMPH % 32.3 % (27.0-41.0); MEAN CELL VOLUME 88.8 fl (81.0-99.0); MEAN CORPUSCULAR HGB 28.7 pg (27.0-31.0); MEAN CORPUSCULAR HGB CONC 32.4 g/dl (33.0-37.0); MEAN PLATELET VOLUME 13.3 fl (9.6-12.3); MONO # 0.5 10*3/uL (0.1-1.0); MONO % 6.3 % (3.0-9.0); NEUT # 4.8 10*3/uL (2.3-7.9); NEUT % 57.7 % (47.0-73.0); PLATELET COUNT AUTOMATED 207 10*3/uL (130-400); RED BLOOD COUNT 5.01 10*6/uL (4.10-5.10); RED CELL DISTRI WIDTH 13.1 % (0-14.5); WHITE BLOOD COUNT 8.3 10*3/uL (4.8-10.8)
[2019-08-27 09:27] LABS: ALBUMIN 3.5 gm/dl (3.1-4.5); ALKALINE PHOSPHATASE 67 U/L (45-117); BUN 16 mg/dl (7-24); CHLORIDE 107 mmol/L (98-107); CREATININE 0.69 mg/dL (0.55-1.02); POTASSIUM 4.1 mmol/L (3.5-5.1); SGOT/AST 8 IU/L (3-35); SGPT/ALT 18 U/L (12-78); SODIUM 138 mmol/L (136-145); TOTAL PROTEIN 7.4 gm/dL (6.4-8.2)
[2019-08-28 08:09] LABS: VALPROIC ACID, TOTAL 83 ug/mL (50-100)
== END | disposition home or self-care (01) ==
LOC: LAB 08:39
PROVIDERS: Psychiatry & Neurology Neurology
DX: Z51.81 Encounter for therapeutic drug level monitoring (principal); G43.711 Chronic migraine without aura, intractable, with status migrainosus; R56.9 Unspecified convulsions

== ENCOUNTER → 2019-08-30 | Outpatient (CLI) | payer OTHER | END | disposition home or self-care (01) | LOC: MRI 01:53 | DX: Z51.81 Encounter for therapeutic drug level monitoring (principal); I67.82 Cerebral ischemia; G43.711 Chronic migraine without aura, intractable, with status migrainosus ==

== ENCOUNTER 2019-12-05 15:40 | Emergency (ER) | payer OTHER ==
[~2019-12-05] VITALS: Ht 170.1 cm; Wt 97.5 kg
[~2019-12-05 15:40] MED LIST changes: +ZYRTEC10 MG PO
[2019-12-05 16:18] LABS: BASO # 0.1 10*3/uL (0.0-0.1); BASO % 0.8 % (0.0-1.0); EOS # 0.2 10*3/uL (0.0-0.4); EOS % 2.3 % (1.0-4.0); HEMATOCRIT 43.4 % (37.0-47.0); LYMPH % 39.2 % (27.0-41.0); MEAN CELL VOLUME 89.5 fl (81.0-99.0); MEAN CORPUSCULAR HGB 28.9 pg (27.0-31.0); MEAN CORPUSCULAR HGB CONC 32.3 g/dl (33.0-37.0); MEAN PLATELET VOLUME 13.2 fl (9.6-12.3); MONO # 0.7 10*3/uL (0.1-1.0); MONO % 6.7 % (3.0-9.0); NEUT # 5.2 10*3/uL (2.3-7.9); NEUT % 50.6 % (47.0-73.0); PLATELET COUNT AUTOMATED 206 10*3/uL (130-400); RED BLOOD COUNT 4.85 10*6/uL (4.10-5.10); RED CELL DISTRI WIDTH 13.2 % (0-14.5); WHITE BLOOD COUNT 10.2 10*3/uL (4.8-10.8)
[2019-12-05 16:28] LABS: BILIRUBIN NEGATIVE (NEGATIVE); BLOOD NEGATIVE (NEGATIVE); CLARITY SL CLOUDY (CLEAR); COLOR YELLOW (YELLOW); GLUCOSE NEGATIVE (NEGATIVE); KETONE NEGATIVE (NEGATIVE); LEUKO ESTERASE NEGATIVE (NEGATIVE); NITRITE NEGATIVE (NEGATIVE); UROBILINOGEN 0.2 E.U./dl (0.2-1.0)
[2019-12-05 16:30] LABS: ALBUMIN 3.4 gm/dl (3.1-4.5); ALKALINE PHOSPHATASE 75 U/L (45-117); BUN 10 mg/dl (7-24); CHLORIDE 111 mmol/L (98-107); CREATININE 0.73 mg/dL (0.55-1.02); POTASSIUM 3.8 mmol/L (3.5-5.1); SGOT/AST 5 IU/L (3-35); SGPT/ALT 22 U/L (12-78); SODIUM 141 mmol/L (136-145); TOTAL PROTEIN 6.9 gm/dL (6.4-8.2)
[2019-12-05 16:32] LABS: ACT PARTIAL THROMBO TIME 25.4 SECONDS (20.0-32.1); INTERNATIONAL NORM RATIO 0.9 (2.0-3.5)
[2019-12-05 16:36] LABS: BACTERIA 2+; EPITHELIAL CELLS 15-20; RBC 0-2 rbc/hpf (0-2)
[2019-12-05 16:39] LABS: VALPROIC ACID (DEPAKENE) 63.3 ug/ml (50-100)
[2019-12-05 16:57] VITALS: BP 136/70
== END 2019-12-05 17:22 | disposition home or self-care (01) ==
LOC: ED 15:40
PROVIDERS: Emergency Medicine
DX: G43.909 Migraine, unspecified, not intractable, without status migrainosus (principal); R53.83 Other fatigue; F41.9 Anxiety disorder, unspecified; F31.9 Bipolar disorder, unspecified; K21.9 Gastro-esophageal reflux disease without esophagitis; E78.2 Mixed hyperlipidemia; G40.909 Epilepsy, unspecified, not intractable, without status epilepticus; J45.909 Unspecified asthma, uncomplicated; Z88.8 Allergy status to other drugs, medicaments and biological substances; Z79.2 Long term (current) use of antibiotics; Z79.899 Other long term (current) drug therapy; Z90.710 Acquired absence of both cervix and uterus

== ENCOUNTER → 2020-01-05 | Outpatient (CLI) | payer OTHER | END | disposition home or self-care (01) | LOC: RAD 14:11 | DX: M54.5 Low back pain (principal) ==

== ENCOUNTER 2020-03-29 14:25 | Emergency (ER) | payer OTHER ==
[~2020-03-29] VITALS: Ht 170.1 cm; Wt 99.3 kg
[2020-03-29 14:28] VITALS: BP 138/86
[2020-03-29 14:54] LABS: BASO # 0.1 10*3/uL (0.0-0.1); BASO % 0.7 % (0.0-1.0); EOS # 0.2 10*3/uL (0.0-0.4); EOS % 1.4 % (1.0-4.0); HEMATOCRIT 40.6 % (37.0-47.0); LYMPH # 3.2 10*3/uL (1.3-4.4); LYMPH % 26.8 % (27.0-41.0); MEAN CORPUSCULAR HGB 29.1 pg (27.0-31.0); MEAN PLATELET VOLUME 12.7 fl (9.6-12.3); MONO # 0.7 10*3/uL (0.1-1.0); MONO % 5.6 % (3.0-9.0); NEUT # 7.8 10*3/uL (2.3-7.9); NEUT % 65.2 % (47.0-73.0); PLATELET COUNT AUTOMATED 207 10*3/uL (130-400); RED BLOOD COUNT 4.46 10*6/uL (4.10-5.10); RED CELL DISTRI WIDTH 13.1 % (0-14.5)
[2020-03-29 15:04] LABS: ACT PARTIAL THROMBO TIME 24.5 SECONDS (20.0-32.1); INTERNATIONAL NORM RATIO 0.9 (2.0-3.5)
[2020-03-29 15:10] LABS: ALBUMIN 3.3 gm/dl (3.1-4.5); ALKALINE PHOSPHATASE 70 U/L (45-117); BUN 14 mg/dl (7-24); CHLORIDE 111 mmol/L (98-107); CREATININE 0.68 mg/dL (0.55-1.02); POTASSIUM 3.6 mmol/L (3.5-5.1); SGOT/AST 8 IU/L (3-35); SGPT/ALT 19 U/L (12-78); SODIUM 140 mmol/L (136-145); TOTAL PROTEIN 6.9 gm/dL (6.4-8.2)
[2020-03-29 15:11] LABS: TROPONIN I < 0.015 ng/ml (<0.045)
[2020-03-29] MEDS ORDERED: CYCLOBENZAPRINE10 MG PO (18:19)
[2020-03-29] MEDS ORDERED: Motrin,Rufen800 MG PO (18:19)
== END 2020-03-29 18:23 | disposition home or self-care (01) ==
LOC: ED 14:25
PROVIDERS: Emergency Medicine
DX: S16.1XXA Strain of muscle, fascia and tendon at neck level, initial encounter (principal); K21.9 Gastro-esophageal reflux disease without esophagitis; F32.9 Major depressive disorder, single episode, unspecified; J45.909 Unspecified asthma, uncomplicated; F41.9 Anxiety disorder, unspecified; G43.909 Migraine, unspecified, not intractable, without status migrainosus; R56.9 Unspecified convulsions; Z88.8 Allergy status to other drugs, medicaments and biological substances; Z79.899 Other long term (current) drug therapy; Z90.710 Acquired absence of both cervix and uterus; X58.XXXA Exposure to other specified factors, initial encounter; Y93.89 Activity, other specified; Y92.89 Other specified places as the place of occurrence of the external cause; Y99.8 Other external cause status

== ENCOUNTER → 2020-05-30 | Outpatient (CLI) | payer OTHER ==
[~2020-05-30] MED LIST changes: +Motrin,Rufen800 MG PO
== END | disposition home or self-care (01) ==
LOC: COVID19 00:53
DX: Z11.59 Encounter for screening for other viral diseases (principal); K52.9 Noninfective gastroenteritis and colitis, unspecified

== ENCOUNTER → 2020-12-07 | Outpatient (CLI) | payer OTHER ==
[~2020-12-07] MED LIST changes: +EMGALITY120 MG/1 M SQ; +REXULTI1 MG PO; +TOPAMAX100 M1 PO; +TOPAMAX50 MG PO
== END | disposition home or self-care (01) ==
LOC: MAMMO 11:06
PROVIDERS: ATTEND Family Medicine
DX: Z12.31 Encounter for screening mammogram for malignant neoplasm of breast (principal); N64.89 Other specified disorders of breast

== ENCOUNTER → 2020-12-20 | Outpatient (CLI) | payer OTHER ==
[2020-12-20 08:22] LABS: BASO # 0.1 10*3/uL (0.0-0.1); BASO % 0.7 % (0.0-1.0); EOS # 0.3 10*3/uL (0.0-0.4); LYMPH # 2.7 10*3/uL (1.3-4.4); LYMPH % 32.5 % (27.0-41.0); MEAN CORPUSCULAR HGB 28.2 pg (27.0-31.0); MEAN CORPUSCULAR HGB CONC 31.7 g/dl (33.0-37.0); MEAN PLATELET VOLUME 12.9 fl (9.6-12.3); MONO # 0.5 10*3/uL (0.1-1.0); MONO % 6.6 % (3.0-9.0); NEUT # 4.7 10*3/uL (2.3-7.9); NEUT % 56.8 % (47.0-73.0); PLATELET COUNT AUTOMATED 234 10*3/uL (130-400); RED BLOOD COUNT 4.72 10*6/uL (4.10-5.10); RED CELL DISTRI WIDTH 13.3 % (0-14.5); WHITE BLOOD COUNT 8.2 10*3/uL (4.8-10.8)
[2020-12-20 08:51] LABS: ALBUMIN 3.3 gm/dl (3.1-4.5); ALKALINE PHOSPHATASE 69 U/L (45-117); BUN 17 mg/dl (7-24); CHLORIDE 115 mmol/L (98-107); POTASSIUM 4.1 mmol/L (3.5-5.1); SGOT/AST 5 IU/L (3-35); SGPT/ALT 19 U/L (12-78); SODIUM 144 mmol/L (136-145); TOTAL PROTEIN 6.9 gm/dL (6.4-8.2)
[2020-12-20 08:59] LABS: VALPROIC ACID (DEPAKENE) 27.1 ug/ml (50-100)
== END | disposition home or self-care (01) ==
LOC: LAB 08:03 → MAMMO 09:00
PROVIDERS: ATTEND Family Medicine
DX: G43.711 Chronic migraine without aura, intractable, with status migrainosus (principal); R92.8 Other abnormal and inconclusive findings on diagnostic imaging of breast; G40.309 Generalized idiopathic epilepsy and epileptic syndromes, not intractable, without status epilepticus; E55.9 Vitamin D deficiency, unspecified; Z51.81 Encounter for therapeutic drug level monitoring

== ENCOUNTER 2021-01-08 12:56 | Observation (INO) | payer OTHER ==
[~2021-01-08] VITALS: Ht 170.1 cm; Wt 97.1 kg
[~2021-01-08 12:56] MED LIST changes: -EMGALITY120 MG/1 M SQ; -REXULTI1 MG PO; -TOPAMAX100 M1 PO; -TOPAMAX50 MG PO
[2021-01-08 13:06] VITALS: BP 130/79
[2021-01-08 14:00] VITALS: BP 105/57
[2021-01-08 14:03] LABS: BASO # 0.1 10*3/uL (0.0-0.1); BASO % 0.5 % (0.0-1.0); EOS # 0.2 10*3/uL (0.0-0.4); EOS % 1.8 % (1.0-4.0); HEMATOCRIT 42.5 % (37.0-47.0); LYMPH # 3.3 10*3/uL (1.3-4.4); LYMPH % 34.8 % (27.0-41.0); MEAN CELL VOLUME 87.8 fl (81.0-99.0); MEAN CORPUSCULAR HGB 28.1 pg (27.0-31.0); MEAN PLATELET VOLUME 12.9 fl (9.6-12.3); MONO # 0.5 10*3/uL (0.1-1.0); MONO % 5.1 % (3.0-9.0); NEUT # 5.5 10*3/uL (2.3-7.9); NEUT % 57.4 % (47.0-73.0); PLATELET COUNT AUTOMATED 198 10*3/uL (130-400); RED BLOOD COUNT 4.84 10*6/uL (4.10-5.10); RED CELL DISTRI WIDTH 13.4 % (0-14.5); WHITE BLOOD COUNT 9.6 10*3/uL (4.8-10.8)
[2021-01-08 14:11] LABS: ACT PARTIAL THROMBO TIME 26.2 SECONDS (20.0-32.1)
[2021-01-08 14:18] LABS: ALBUMIN 3.4 gm/dl (3.1-4.5); ALKALINE PHOSPHATASE 64 U/L (45-117); BUN 15 mg/dl (7-24); CHLORIDE 111 mmol/L (98-107); CREATININE 0.62 mg/dL (0.55-1.02); LIPASE 88 U/L (73-393); SGOT/AST 5 IU/L (3-35); SGPT/ALT 17 U/L (12-78); SODIUM 140 mmol/L (136-145); TOTAL PROTEIN 7.1 gm/dL (6.4-8.2)
[2021-01-08 14:21] LABS: BETA-HCG, QUANT < 1.0 mIU/mL (1-3)
[2021-01-08 14:22] LABS: TROPONIN I < 0.015 ng/ml (<0.045)
[2021-01-08 17:00] VITALS: BP 128/82
[2021-01-08 17:10] VITALS: BP 113/57
[2021-01-08] MEDS ORDERED: NEURONTIN400 MG PO (17:22)
[2021-01-08] MEDS ORDERED: TOPAMAX50 MG PO (17:26)
[2021-01-08] MEDS ORDERED: TOPAMAX100 M1 PO (17:26)
[2021-01-08] MEDS ORDERED: EMGALITY120 MG/1 M SQ (18:27)
[2021-01-08 20:00] VITALS: BP 114/57
[2021-01-08] MEDS ORDERED: REXULTI1 MG PO (20:26)
[2021-01-09] VITALS: BP 105/57
[2021-01-09 06:14] LABS: BASO # 0.1 10*3/uL (0.0-0.1); BASO % 0.8 % (0.0-1.0); EOS # 0.2 10*3/uL (0.0-0.4); EOS % 2.1 % (1.0-4.0); HEMATOCRIT 42.4 % (37.0-47.0); LYMPH # 4.7 10*3/uL (1.3-4.4); LYMPH % 44.8 % (27.0-41.0); MEAN CELL VOLUME 88.1 fl (81.0-99.0); MEAN CORPUSCULAR HGB 28.1 pg (27.0-31.0); MEAN CORPUSCULAR HGB CONC 31.8 g/dl (33.0-37.0); MEAN PLATELET VOLUME 13.7 fl (9.6-12.3); MONO # 0.7 10*3/uL (0.1-1.0); MONO % 6.4 % (3.0-9.0); NEUT # 4.7 10*3/uL (2.3-7.9); NEUT % 45.4 % (47.0-73.0); PLATELET COUNT AUTOMATED 194 10*3/uL (130-400); RED BLOOD COUNT 4.81 10*6/uL (4.10-5.10); RED CELL DISTRI WIDTH 13.4 % (0-14.5); WHITE BLOOD COUNT 10.4 10*3/uL (4.8-10.8)
[2021-01-09 06:37] LABS: ALBUMIN 3.1 gm/dl (3.1-4.5); BUN 18 mg/dl (7-24); CHLORIDE 112 mmol/L (98-107); CREATININE 0.66 mg/dL (0.55-1.02); POTASSIUM 4.1 mmol/L (3.5-5.1); SGOT/AST 8 IU/L (3-35); SGPT/ALT 18 U/L (12-78); SODIUM 140 mmol/L (136-145)
[2021-01-09 06:44] LABS: ALKALINE PHOSPHATASE 64 U/L (45-117); CHOLESTEROL 176 mg/dL (<200); FREE T4 0.82 ng/dl (0.76-1.46); HDL CHOLESTEROL 36 mg/dl (40-60); LDL CHOLESTEROL 72 mg/dL (9-159); TOTAL PROTEIN 6.5 gm/dL (6.4-8.2); TRIGLYCERIDES 340 mg/dl (<150); VLDL CHOLESTEROL 68 mg/dL (6-40)
[2021-01-09 07:17] LABS: VITAMIN D, 25-HYDROXY 24.2 ng/mL (30-100)
[2021-01-09 08:00] VITALS: BP 114/52
[2021-01-09 16:00] VITALS: BP 100/67
== END 2021-01-09 18:09 | disposition home or self-care (01) ==
LOC: ED 12:56 → EDHOLD 15:39 → 4E 16:08
PROVIDERS: Emergency Medicine; Registered Nurse; ADMIT Internal Medicine; ATTEND Internal Medicine
DX: R07.89 Other chest pain (principal); F31.30 Bipolar disorder, current episode depressed, mild or moderate severity, unspecified; G40.909 Epilepsy, unspecified, not intractable, without status epilepticus; K21.9 Gastro-esophageal reflux disease without esophagitis; G43.909 Migraine, unspecified, not intractable, without status migrainosus; F41.1 Generalized anxiety disorder; E78.5 Hyperlipidemia, unspecified; F17.210 Nicotine dependence, cigarettes, uncomplicated; Z79.899 Other long term (current) drug therapy

== ENCOUNTER 2021-03-30 11:53 | Emergency (ER) | payer OTHER ==
[~2021-03-30] VITALS: Ht 170.1 cm; Wt 94.3 kg
[~2021-03-30 11:53] MED LIST changes: +EMGALITY120 MG/1 M SQ; +REXULTI1 MG PO; +TOPAMAX100 M1 PO; +TOPAMAX50 MG PO
[2021-03-30 12:14] VITALS: BP 118/65
[2021-03-30 13:15] LABS: BILIRUBIN Negative (Negative); BLOOD Negative (Negative); CLARITY Turbid (Clear); COLOR Yellow (Yellow); GLUCOSE Negative (Negative); KETONE Trace (Negative); LEUKO ESTERASE Negative (Negative); NITRITE Negative (Negative); SPECIFIC GRAVITY 1.025 (1.001-1.030)
[2021-03-30 13:32] LABS: BACTERIA 4+; EPITHELIAL CELLS 41-50
[2021-03-30 13:51] LABS: BASO # 0.1 10*3/uL (0.0-0.1); BASO % 0.7 % (0.0-1.0); EOS # 0.2 10*3/uL (0.0-0.4); EOS % 1.5 % (1.0-4.0); HEMATOCRIT 42.9 % (37.0-47.0); LYMPH # 3.1 10*3/uL (1.3-4.4); MEAN CELL VOLUME 87.9 fl (81.0-99.0); MEAN CORPUSCULAR HGB 28.1 pg (27.0-31.0); MEAN CORPUSCULAR HGB CONC 31.9 g/dl (33.0-37.0); MEAN PLATELET VOLUME 12.4 fl (9.6-12.3); MONO # 0.6 10*3/uL (0.1-1.0); MONO % 5.7 % (3.0-9.0); NEUT % 60.7 % (47.0-73.0); PLATELET COUNT AUTOMATED 217 10*3/uL (130-400); RED BLOOD COUNT 4.88 10*6/uL (4.10-5.10); RED CELL DISTRI WIDTH 13.2 % (0-14.5); WHITE BLOOD COUNT 9.9 10*3/uL (4.8-10.8)
[2021-03-30 14:07] LABS: ALBUMIN 3.3 gm/dl (3.1-4.5); ALKALINE PHOSPHATASE 65 U/L (45-117); BUN 13 mg/dl (7-24); CHLORIDE 114 mmol/L (98-107); CREATININE 0.78 mg/dL (0.55-1.02); LIPASE 92 U/L (73-393); POTASSIUM 4.3 mmol/L (3.5-5.1); SGOT/AST 4 IU/L (3-35); SGPT/ALT 16 U/L (12-78); SODIUM 140 mmol/L (136-145); TOTAL PROTEIN 7.1 gm/dL (6.4-8.2)
[2021-03-30 14:09] LABS: TROPONIN I < 0.015 ng/ml (<0.045)
[2021-03-30] MEDS ORDERED: MECLIZINE HCL25 M2 PO (16:00)
[2021-03-30] MEDS ORDERED: PREDNISONE20 M1 PO (16:00)
[2021-03-30] MEDS ORDERED: METHOCARBAMOL500 M1 PO (16:00)
== END 2021-03-30 16:16 | disposition home or self-care (01) ==
LOC: ED 11:53
PROVIDERS: Physician Assistant
DX: H81.10 Benign paroxysmal vertigo, unspecified ear (principal); M62.838 Other muscle spasm; M54.2 Cervicalgia; Z79.899 Other long term (current) drug therapy; Z88.8 Allergy status to other drugs, medicaments and biological substances; Z90.711 Acquired absence of uterus with remaining cervical stump; Z98.890 Other specified postprocedural states; Z98.51 Tubal ligation status

== ENCOUNTER 2021-04-10 23:20 | Emergency (ER) | payer OTHER ==
[~2021-04-10] VITALS: Wt 94.3 kg
[~2021-04-10 23:20] MED LIST changes: +MECLIZINE HCL25 M2 PO; +METHOCARBAMOL500 M1 PO; +PREDNISONE20 M1 PO
[2021-04-10 23:44] LABS: HEMATOCRIT 39.6 % (37.0-47.0); MEAN CORPUSCULAR HGB 28.3 pg (27.0-31.0); MEAN CORPUSCULAR HGB CONC 31.8 g/dl (33.0-37.0); PLATELET COUNT AUTOMATED 195 10*3/uL (130-400); RED BLOOD COUNT 4.45 10*6/uL (4.10-5.10); RED CELL DISTRI WIDTH 13.4 % (0-14.5); WHITE BLOOD COUNT 11.7 10*3/uL (4.8-10.8)
[2021-04-11 00:01] LABS: MICROCYTOSIS SLIGHT; PLATELET SUFFICIENCY NORMAL (NORMAL); TOTAL CELLS COUNTED 100 #CELLS
[2021-04-11 00:02] LABS: ALBUMIN 3.1 gm/dl (3.1-4.5); ALKALINE PHOSPHATASE 54 U/L (45-117); BUN 13 mg/dl (7-24); CHLORIDE 114 mmol/L (98-107); CREATININE 0.73 mg/dL (0.55-1.02); POTASSIUM 4.2 mmol/L (3.5-5.1); SGOT/AST 4 IU/L (3-35); SGPT/ALT 18 U/L (12-78); SODIUM 142 mmol/L (136-145); TOTAL PROTEIN 6.3 gm/dL (6.4-8.2)
[2021-04-11 00:07] LABS: TROPONIN I < 0.015 ng/ml (<0.045)
[2021-04-11 03:43] VITALS: BP 112/80
== END 2021-04-11 03:59 | disposition home or self-care (01) ==
LOC: ED 23:20
DX: R07.9 Chest pain, unspecified (principal); F31.9 Bipolar disorder, unspecified; Z88.8 Allergy status to other drugs, medicaments and biological substances; Z79.899 Other long term (current) drug therapy; Z98.890 Other specified postprocedural states

== ENCOUNTER 2021-06-02 19:23 | Emergency (ER) | payer OTHER ==
[~2021-06-02] VITALS: Ht 170.1 cm; Wt 96.2 kg
[2021-06-02 19:30] VITALS: BP 119/67
[2021-06-02 22:05] LABS: BILIRUBIN Negative (Negative); BLOOD Negative (Negative); CLARITY Cloudy (Clear); COLOR Yellow (Yellow); GLUCOSE Negative (Negative); KETONE Negative (Negative); LEUKO ESTERASE Negative (Negative); NITRITE Negative (Negative); SPECIFIC GRAVITY >= 1.030 (1.001-1.030)
[2021-06-02 22:20] LABS: BACTERIA 1+; EPITHELIAL CELLS TNTC
[2021-06-02 23:03] LABS: BASO # 0.1 10*3/uL (0.0-0.1); BASO % 0.6 % (0.0-1.0); EOS # 0.2 10*3/uL (0.0-0.4); EOS % 2.4 % (1.0-4.0); LYMPH # 3.7 10*3/uL (1.3-4.4); MEAN CELL VOLUME 89.4 fl (81.0-99.0); MEAN CORPUSCULAR HGB 28.3 pg (27.0-31.0); MEAN CORPUSCULAR HGB CONC 31.7 g/dl (33.0-37.0); MEAN PLATELET VOLUME 12.9 fl (9.6-12.3); MONO # 0.5 10*3/uL (0.1-1.0); MONO % 5.5 % (3.0-9.0); NEUT # 5.3 10*3/uL (2.3-7.9); PLATELET COUNT AUTOMATED 264 10*3/uL (130-400); RED CELL DISTRI WIDTH 13.2 % (0-14.5); WHITE BLOOD COUNT 9.9 10*3/uL (4.8-10.8)
[2021-06-02 23:21] LABS: ALBUMIN 3.4 gm/dl (3.1-4.5); ALKALINE PHOSPHATASE 63 U/L (45-117); BUN 15 mg/dl (7-24); CHLORIDE 110 mmol/L (98-107); CREATININE 0.61 mg/dL (0.55-1.02); LIPASE 112 U/L (73-393); POTASSIUM 3.9 mmol/L (3.5-5.1); SGOT/AST 9 IU/L (3-35); SGPT/ALT 24 U/L (12-78); SODIUM 140 mmol/L (136-145)
== END 2021-06-03 03:57 | disposition home or self-care (01) ==
LOC: ED 19:23
PROVIDERS: Emergency Medicine
DX: N83.209 Unspecified ovarian cyst, unspecified side (principal); R10.31 Right lower quadrant pain; K21.9 Gastro-esophageal reflux disease without esophagitis; E78.5 Hyperlipidemia, unspecified; G43.909 Migraine, unspecified, not intractable, without status migrainosus; E66.9 Obesity, unspecified; Z88.1 Allergy status to other antibiotic agents; Z79.899 Other long term (current) drug therapy; Z87.891 Personal history of nicotine dependence

== ENCOUNTER 2021-06-30 14:55 | Emergency (ER) | payer OTHER ==
[~2021-06-30] VITALS: Ht 170.1 cm; Wt 96.2 kg
[2021-06-30 15:22] VITALS: BP 118/59
[2021-06-30 17:51] LABS: BASO % 0.5 % (0.0-1.0); EOS # 0.2 10*3/uL (0.0-0.4); EOS % 2.8 % (1.0-4.0); HEMATOCRIT 43.8 % (37.0-47.0); LYMPH % 49.5 % (27.0-41.0); MEAN CELL VOLUME 88.1 fl (81.0-99.0); MEAN CORPUSCULAR HGB CONC 31.7 g/dl (33.0-37.0); MEAN PLATELET VOLUME 12.6 fl (9.6-12.3); MONO # 0.4 10*3/uL (0.1-1.0); MONO % 6.5 % (3.0-9.0); NEUT # 2.4 10*3/uL (2.3-7.9); PLATELET COUNT AUTOMATED 182 10*3/uL (130-400); RED BLOOD COUNT 4.97 10*6/uL (4.10-5.10)
[2021-06-30 18:23] LABS: ALBUMIN 3.7 gm/dl (3.1-4.5); BUN 8 mg/dl (7-24); CHLORIDE 114 mmol/L (98-107); POTASSIUM 3.8 mmol/L (3.5-5.1); SODIUM 143 mmol/L (136-145)
[2021-06-30 18:30] LABS: ALKALINE PHOSPHATASE 63 U/L (45-117); CPK 53 U/L (26-192); CREATININE 0.54 mg/dL (0.55-1.02); SGOT/AST 12 IU/L (3-35); SGPT/ALT 31 U/L (12-78); TOTAL PROTEIN 7.2 gm/dL (6.4-8.2)
[2021-06-30 18:31] LABS: LIPASE 83 U/L (73-393)
[2021-06-30 18:34] LABS: TROPONIN I < 0.015 ng/ml (<0.045)
== END 2021-06-30 20:08 | disposition home or self-care (01) ==
LOC: ED 14:55
PROVIDERS: Nurse Practitioner Family
DX: U07.1 COVID-19 (principal); T39.8X5A Adverse effect of other nonopioid analgesics and antipyretics, not elsewhere classified, initial encounter; G43.909 Migraine, unspecified, not intractable, without status migrainosus; R07.89 Other chest pain; F12.10 Cannabis abuse, uncomplicated; F17.200 Nicotine dependence, unspecified, uncomplicated; Z98.51 Tubal ligation status; Z90.710 Acquired absence of both cervix and uterus; Z79.899 Other long term (current) drug therapy; Z88.1 Allergy status to other antibiotic agents; Y92.89 Other specified places as the place of occurrence of the external cause

== ENCOUNTER 2021-07-14 10:08 | Emergency (ER) | payer OTHER ==
[~2021-07-14] VITALS: Ht 170.1 cm
[2021-07-14 10:15] VITALS: BP 100/59
[2021-07-14 10:30] LABS: HEMATOCRIT 40.6 % (37.0-47.0); MEAN CELL VOLUME 88.5 fl (81.0-99.0); MEAN CORPUSCULAR HGB 28.3 pg (27.0-31.0); MEAN PLATELET VOLUME 13.9 fl (9.6-12.3); PLATELET COUNT AUTOMATED 172 10*3/uL (130-400); RED BLOOD COUNT 4.59 10*6/uL (4.10-5.10); RED CELL DISTRI WIDTH 13.2 % (0-14.5); WHITE BLOOD COUNT 8.5 10*3/uL (4.8-10.8)
[2021-07-14 10:43] LABS: ALBUMIN 3.3 gm/dl (3.1-4.5); ALKALINE PHOSPHATASE 66 U/L (45-117); BUN 15 mg/dl (7-24); CHLORIDE 112 mmol/L (98-107); CREATININE 0.68 mg/dL (0.55-1.02); POTASSIUM 4.2 mmol/L (3.5-5.1); SGOT/AST 6 IU/L (3-35); SGPT/ALT 22 U/L (12-78); SODIUM 140 mmol/L (136-145); TOTAL PROTEIN 6.7 gm/dL (6.4-8.2)
[2021-07-14 10:48] LABS: BASOPHILS 1 % (0-1); TOTAL CELLS COUNTED 100 #CELLS; TROPONIN I < 0.015 ng/ml (<0.045)
[2021-07-14 10:49] LABS: PLATELET SUFFICIENCY NORMAL (NORMAL)
[2021-07-14 10:50] LABS: ACT PARTIAL THROMBO TIME 24.4 SECONDS (20.0-32.1)
[2021-07-14] MEDS ORDERED: PREDNISONE50 MG PO (12:59)
== END 2021-07-14 13:15 | disposition home or self-care (01) ==
LOC: ED 10:08
PROVIDERS: Internal Medicine
DX: R07.9 Chest pain, unspecified (principal); F17.200 Nicotine dependence, unspecified, uncomplicated; Z88.1 Allergy status to other antibiotic agents; Z79.899 Other long term (current) drug therapy

== ENCOUNTER → 2021-08-02 | Outpatient (CLI) | payer OTHER ==
[~2021-08-02] MED LIST changes: +PREDNISONE50 MG PO
== END | disposition home or self-care (01) ==
LOC: US 14:17
PROVIDERS: ATTEND Nurse Practitioner Women's Health
DX: R19.00 Intra-abdominal and pelvic swelling, mass and lump, unspecified site (principal); N94.9 Unspecified condition associated with female genital organs and menstrual cycle

== ENCOUNTER → 2022-02-12 | Outpatient (CLI) | payer OTHER | END | disposition home or self-care (01) | LOC: MAMMO 01-28 14:00 | PROVIDERS: ATTEND Family Medicine | DX: Z12.31 Encounter for screening mammogram for malignant neoplasm of breast (principal); N64.59 Other signs and symptoms in breast ==

== ENCOUNTER → 2022-03-15 | Outpatient (CLI) | payer OTHER | END | disposition home or self-care (01) | LOC: MRI 01:10 | PROVIDERS: ATTEND Physician Assistant Medical | DX: M51.37 Other intervertebral disc degeneration, lumbosacral region (principal); G95.19 Other vascular myelopathies; M51.35 Other intervertebral disc degeneration, thoracolumbar region; M48.07 Spinal stenosis, lumbosacral region; M47.816 Spondylosis without myelopathy or radiculopathy, lumbar region ==

== ENCOUNTER 2022-06-26 17:22 | Emergency (ER) | payer OTHER ==
[~2022-06-26] VITALS: Ht 170.1 cm; Wt 97.5 kg
[2022-06-26 17:29] VITALS: BP 120/79
[2022-06-26 18:07] LABS: BASO # 0.1 10*3/uL (0.0-0.1); BASO % 0.7 % (0.0-1.0); EOS # 0.2 10*3/uL (0.0-0.4); EOS % 2.2 % (1.0-4.0); HEMATOCRIT 41.2 % (37.0-47.0); LYMPH # 3.5 10*3/uL (1.3-4.4); LYMPH % 35.1 % (27.0-41.0); MEAN CELL VOLUME 89.2 fl (81.0-99.0); MEAN CORPUSCULAR HGB 29.2 pg (27.0-31.0); MEAN CORPUSCULAR HGB CONC 32.8 g/dl (33.0-37.0); MONO # 0.6 10*3/uL (0.1-1.0); MONO % 5.6 % (3.0-9.0); NEUT # 5.5 10*3/uL (2.3-7.9); NEUT % 55.7 % (47.0-73.0); PLATELET COUNT AUTOMATED 205 10*3/uL (130-400); RED BLOOD COUNT 4.62 10*6/uL (4.10-5.10); RED CELL DISTRI WIDTH 13.5 % (0-14.5); WHITE BLOOD COUNT 9.9 10*3/uL (4.8-10.8)
[2022-06-26 18:29] LABS: BUN 11 mg/dl (7-24); CHLORIDE 112 mmol/L (98-107); CREATININE 0.55 mg/dL (0.55-1.02); POTASSIUM 3.9 mmol/L (3.5-5.1); SGOT/AST 10 IU/L (3-35); SGPT/ALT 23 U/L (12-78); SODIUM 140 mmol/L (136-145)
[2022-06-26 18:32] LABS: ALKALINE PHOSPHATASE 66 U/L (45-117); TOTAL PROTEIN 6.8 gm/dL (6.4-8.2)
[2022-06-26 18:59] LABS: BILIRUBIN Negative (Negative); BLOOD Negative (Negative); CLARITY Cloudy (Clear); COLOR Dark Yellow (Yellow); GLUCOSE Negative (Negative); KETONE 1+ (Negative); LEUKO ESTERASE Negative (Negative); NITRITE Negative (Negative); PH 5.5 (4.5-8.0); SPECIFIC GRAVITY 1.025 (1.001-1.030)
[2022-06-26] MEDS ORDERED: GABAPENTIN400 MG PO (19:13)
[2022-06-26] MEDS ORDERED: ADDERALL 10 MG10 MG PO (19:14)
[2022-06-26 19:21] LABS: BACTERIA 2+; EPITHELIAL CELLS TNTC; RBC 0-2 rbc/hpf (0-2)
[2022-06-26] MEDS ORDERED: ONDANSETRON4 MG SL (19:35)
[2022-06-26] MEDS ORDERED: MACROBID100 M1 PO (19:35)
== END 2022-06-26 19:46 | disposition home or self-care (01) ==
LOC: ED 17:22
PROVIDERS: Nurse Practitioner Family
DX: N39.0 Urinary tract infection, site not specified (principal); F17.200 Nicotine dependence, unspecified, uncomplicated; Z88.1 Allergy status to other antibiotic agents; Z79.899 Other long term (current) drug therapy; Z90.89 Acquired absence of other organs; Z90.710 Acquired absence of both cervix and uterus; Z98.51 Tubal ligation status

== ENCOUNTER 2022-11-11 16:15 | Emergency (ER) | payer OTHER ==
[~2022-11-11] VITALS: Ht 170.1 cm; Wt 93.4 kg
[~2022-11-11 16:15] MED LIST changes: +ADDERALL 10 MG10 MG PO; +GABAPENTIN400 MG PO; +ONDANSETRON4 MG SL
[2022-11-11 16:21] VITALS: BP 140/98
[2022-11-11 17:51] LABS: BASO % 0.3 % (0.0-1.0); EOS # 0.3 10*3/uL (0.0-0.4); EOS % 2.6 % (1.0-4.0); HEMATOCRIT 45.4 % (37.0-47.0); LYMPH # 3.7 10*3/uL (1.3-4.4); LYMPH % 28.5 % (27.0-41.0); MEAN CELL VOLUME 88.5 fl (81.0-99.0); MEAN CORPUSCULAR HGB 28.7 pg (27.0-31.0); MEAN CORPUSCULAR HGB CONC 32.4 g/dl (33.0-37.0); MEAN PLATELET VOLUME 12.3 fl (9.6-12.3); MONO % 7.9 % (3.0-9.0); NEUT # 7.9 10*3/uL (2.3-7.9); NEUT % 60.2 % (47.0-73.0); PLATELET COUNT AUTOMATED 256 10*3/uL (130-400); RED BLOOD COUNT 5.13 10*6/uL (4.10-5.10); RED CELL DISTRI WIDTH 13.2 % (0-14.5); WHITE BLOOD COUNT 13.1 10*3/uL (4.8-10.8)
[2022-11-11 18:58] LABS: ALKALINE PHOSPHATASE 65 U/L (46-116); BUN 10 mg/dl (9-23); CHLORIDE 104 mmol/L (98-107); LIPASE 28 U/L (12-53); POTASSIUM 4.3 mmol/L (3.4-5.1); SGPT/ALT 16 U/L (10-49); TOTAL PROTEIN 6.7 gm/dL (6.0-8.0)
[2022-11-11] MEDS ORDERED: Ondansetron4 MG PO (20:18)
== END 2022-11-11 20:21 | disposition home or self-care (01) ==
LOC: ED 16:15
PROVIDERS: Nurse Practitioner Family
DX: A08.4 Viral intestinal infection, unspecified (principal); Z88.1 Allergy status to other antibiotic agents; Z90.89 Acquired absence of other organs; Z90.710 Acquired absence of both cervix and uterus; Z98.51 Tubal ligation status; F17.200 Nicotine dependence, unspecified, uncomplicated; F12.10 Cannabis abuse, uncomplicated; Z20.822 Contact with and (suspected) exposure to COVID-19

== ENCOUNTER 2022-11-20 19:04 | Emergency (ER) | payer OTHER ==
[~2022-11-20] VITALS: Ht 170.1 cm; Wt 94.8 kg
[~2022-11-20 19:04] MED LIST changes: +Ondansetron4 MG PO
[2022-11-20 19:14] VITALS: BP 134/76
[2022-11-20 21:26] LABS: BASO # 0.1 10*3/uL (0.0-0.1); BASO % 0.7 % (0.0-1.0); EOS # 0.4 10*3/uL (0.0-0.4); EOS % 3.3 % (1.0-4.0); HEMATOCRIT 41.7 % (37.0-47.0); LYMPH # 3.9 10*3/uL (1.3-4.4); LYMPH % 35.1 % (27.0-41.0); MEAN CELL VOLUME 89.7 fl (81.0-99.0); MEAN CORPUSCULAR HGB 28.6 pg (27.0-31.0); MEAN CORPUSCULAR HGB CONC 31.9 g/dl (33.0-37.0); MEAN PLATELET VOLUME 12.3 fl (9.6-12.3); MONO # 0.6 10*3/uL (0.1-1.0); MONO % 5.7 % (3.0-9.0); NEUT # 6.1 10*3/uL (2.3-7.9); NEUT % 54.7 % (47.0-73.0); PLATELET COUNT AUTOMATED 257 10*3/uL (130-400); RED BLOOD COUNT 4.65 10*6/uL (4.10-5.10); RED CELL DISTRI WIDTH 13.3 % (0-14.5); WHITE BLOOD COUNT 11.1 10*3/uL (4.8-10.8)
[2022-11-20 21:40] LABS: ALKALINE PHOSPHATASE 58 U/L (46-116); BUN 10 mg/dl (9-23); CHLORIDE 107 mmol/L (98-107); POTASSIUM 4.1 mmol/L (3.4-5.1); TOTAL PROTEIN 6.9 gm/dL (6.0-8.0)
[2022-11-20 21:47] LABS: SGPT/ALT < 7 U/L (10-49)
[2022-11-20 21:58] LABS: BILIRUBIN Negative (Negative); BLOOD Negative (Negative); CLARITY Clear (Clear); COLOR Yellow (Yellow); GLUCOSE Negative (Negative); KETONE Trace (Negative); LEUKO ESTERASE Negative (Negative); NITRITE Negative (Negative); PH 6.5 (4.5-8.0); SPECIFIC GRAVITY 1.015 (1.001-1.030); UROBILINOGEN 0.2 E.U./dl (0.0-1.0)
[2022-11-20 22:11] LABS: BACTERIA TRACE; EPITHELIAL CELLS 21-30; WBC 0-2 wbc/hpf (0-5)
== END 2022-11-21 00:17 | disposition home or self-care (01) ==
LOC: ED 19:04
PROVIDERS: Emergency Medicine
DX: R10.11 Right upper quadrant pain (principal); K21.9 Gastro-esophageal reflux disease without esophagitis; E78.5 Hyperlipidemia, unspecified; G43.909 Migraine, unspecified, not intractable, without status migrainosus; E66.9 Obesity, unspecified; E78.2 Mixed hyperlipidemia; G40.909 Epilepsy, unspecified, not intractable, without status epilepticus; Z88.1 Allergy status to other antibiotic agents; Z79.899 Other long term (current) drug therapy; Z90.89 Acquired absence of other organs; Z90.710 Acquired absence of both cervix and uterus; Z98.51 Tubal ligation status; Z98.890 Other specified postprocedural states; Z87.891 Personal history of nicotine dependence

== ENCOUNTER → 2023-01-02 | Outpatient (CLI) | payer OTHER | END | disposition home or self-care (01) | LOC: US 02:17 | PROVIDERS: ATTEND Family Medicine | DX: K80.20 Calculus of gallbladder without cholecystitis without obstruction (principal) ==

== ENCOUNTER → 2023-01-20 | Day surgery (SDC) | payer OTHER ==
[2023-01-16 14:17] VITALS: BP 119/71
[2023-01-16 15:15] LABS: BASO # 0.1 10*3/uL (0.0-0.1); BASO % 0.9 % (0.0-1.0); EOS # 0.2 10*3/uL (0.0-0.4); HEMATOCRIT 45.3 % (37.0-47.0); LYMPH # 3.3 10*3/uL (1.3-4.4); LYMPH % 32.4 % (27.0-41.0); MEAN CELL VOLUME 89.2 fl (81.0-99.0); MEAN CORPUSCULAR HGB 28.5 pg (27.0-31.0); MONO # 0.6 10*3/uL (0.1-1.0); MONO % 5.6 % (3.0-9.0); NEUT % 58.7 % (47.0-73.0); PLATELET COUNT AUTOMATED 207 10*3/uL (130-400); RED BLOOD COUNT 5.08 10*6/uL (4.10-5.10); RED CELL DISTRI WIDTH 13.4 % (0-14.5); WHITE BLOOD COUNT 10.3 10*3/uL (4.8-10.8)
[2023-01-16 15:47] LABS: ALKALINE PHOSPHATASE 63 U/L (46-116); BUN 10 mg/dl (9-23); CHLORIDE 110 mmol/L (98-107); POTASSIUM 4.2 mmol/L (3.4-5.1); SGPT/ALT 9 U/L (10-49); TOTAL PROTEIN 7.1 gm/dL (6.0-8.0)
[~2023-01-20] VITALS: Ht 170.1 cm; Wt 93.0 kg
[2023-01-20] VITALS (7 sets, daily range): BP systolic 97–129; BP diastolic 46–75
[~2023-01-20] MED LIST changes: +COLACE100 MG PO; +DEPAKOTE500 M2 PO; +HYDROCODONE-AC1 EAC1 PO; +ONDANSETRON HYDR4 M1 PO
== END | disposition home or self-care (01) ==
LOC: SDC 01-16 13:15
PROVIDERS: ATTEND Surgery
DX: K80.10 Calculus of gallbladder with chronic cholecystitis without obstruction (principal); F41.9 Anxiety disorder, unspecified; K21.9 Gastro-esophageal reflux disease without esophagitis; J45.909 Unspecified asthma, uncomplicated; G43.909 Migraine, unspecified, not intractable, without status migrainosus; F31.9 Bipolar disorder, unspecified; F17.210 Nicotine dependence, cigarettes, uncomplicated; Z88.1 Allergy status to other antibiotic agents; Z90.89 Acquired absence of other organs; Z90.710 Acquired absence of both cervix and uterus; Z79.899 Other long term (current) drug therapy

== ENCOUNTER 2023-05-29 18:44 | Emergency (ER) | payer OTHER ==
[~2023-05-29] VITALS: Ht 170.1 cm; Wt 113.4 kg
[2023-05-29 19:22] LABS: BASO # 0.1 10*3/uL (0.0-0.1); BASO % 0.8 % (0.0-1.0); EOS # 0.2 10*3/uL (0.0-0.4); EOS % 2.2 % (1.0-4.0); HEMATOCRIT 41.5 % (37.0-47.0); LYMPH # 3.3 10*3/uL (1.3-4.4); LYMPH % 31.8 % (27.0-41.0); MEAN CELL VOLUME 88.7 fl (81.0-99.0); MEAN CORPUSCULAR HGB 29.1 pg (27.0-31.0); MEAN CORPUSCULAR HGB CONC 32.8 g/dl (33.0-37.0); MEAN PLATELET VOLUME 12.4 fl (9.6-12.3); MONO # 0.6 10*3/uL (0.1-1.0); MONO % 5.2 % (3.0-9.0); NEUT # 6.2 10*3/uL (2.3-7.9); NEUT % 59.3 % (47.0-73.0); PLATELET COUNT AUTOMATED 225 10*3/uL (130-400); RED BLOOD COUNT 4.68 10*6/uL (4.10-5.10); RED CELL DISTRI WIDTH 13.2 % (0-14.5); WHITE BLOOD COUNT 10.5 10*3/uL (4.8-10.8)
[2023-05-29 19:43] LABS: ALKALINE PHOSPHATASE 65 U/L (46-116); BUN 12 mg/dl (9-23); CHLORIDE 103 mmol/L (98-107); POTASSIUM 3.9 mmol/L (3.4-5.1); SGPT/ALT 12 U/L (10-49); TOTAL PROTEIN 6.6 gm/dL (6.0-8.0)
[2023-05-29 20:59] VITALS: BP 113/53
== END 2023-05-29 22:47 | disposition home or self-care (01) ==
LOC: ED 18:44
PROVIDERS: Internal Medicine
DX: R07.89 Other chest pain (principal); F17.210 Nicotine dependence, cigarettes, uncomplicated; Z88.1 Allergy status to other antibiotic agents; Z79.899 Other long term (current) drug therapy; Z90.89 Acquired absence of other organs; Z98.51 Tubal ligation status; Z90.711 Acquired absence of uterus with remaining cervical stump

== ENCOUNTER → 2024-07-24 | Outpatient (CLI) | payer OTHER | END | disposition home or self-care (01) | LOC: RAD 07:39 | PROVIDERS: ATTEND Nurse Practitioner Family | DX: M25.511 Pain in right shoulder (principal) ==

== ENCOUNTER 2025-01-30 18:04 | Emergency (ER) | payer OTHER ==
[~2025-01-30] VITALS: Ht 170.1 cm; Wt 106.6 kg
[2025-01-30] MEDS ORDERED: Ketorolac Tromethamine 15 MG/ML VIAL IV ONE (18:10)
[2025-01-30] MEDS ORDERED: SODIUM CHLORIDE 0.9% 1,000 ML IV ONE (18:10)
[2025-01-30] MEDS ORDERED: Metoclopramide Hydrochloride 10 MG/2 ML VIAL IV ONE (18:10)
[2025-01-30] MEDS ORDERED: diphenhydrAMINE hydrochloride 50 MG/ML VIAL IV ONE (18:10)
[2025-01-30 18:30] LABS: BASO # 0.1 10*3/uL (0.0-0.1); BASO % 0.7 % (0.0-1.0); EOS # 0.2 10*3/uL (0.0-0.4); EOS % 1.5 % (1.0-4.0); HEMATOCRIT 42.2 % (37.0-47.0); MEAN CORPUSCULAR HGB 28.7 pg (27.0-31.0); MEAN CORPUSCULAR HGB CONC 32.9 g/dl (33.0-37.0); MEAN PLATELET VOLUME 12.7 fl (9.6-12.3); MONO # 0.7 10*3/uL (0.1-1.0); MONO % 6.8 % (3.0-9.0); NEUT # 5.9 10*3/uL (2.3-7.9); NEUT % 56.3 % (47.0-73.0); PLATELET COUNT AUTOMATED 239 10*3/uL (130-400); RED BLOOD COUNT 4.85 10*6/uL (4.10-5.10); RED CELL DISTRI WIDTH 13.2 % (0-14.5); WHITE BLOOD COUNT 10.5 10*3/uL (4.8-10.8)
[2025-01-30] MEDS ORDERED: ABILIFY2 MG PO (18:46)
[2025-01-30] MEDS ORDERED: ADDERALL XR20 MG PO (18:49)
[2025-01-30 18:51] LABS: BUN 12 mg/dl (9-23); CHLORIDE 107 mmol/L (98-107); POTASSIUM 3.5 mmol/L (3.4-5.1)
[2025-01-30 19:42] VITALS: BP 118/80
== END 2025-01-30 20:32 | disposition home or self-care (01) ==
LOC: ED 18:04
PROVIDERS: Emergency Medicine
DX: G43.909 Migraine, unspecified, not intractable, without status migrainosus (principal); R07.89 Other chest pain; E78.5 Hyperlipidemia, unspecified; F17.200 Nicotine dependence, unspecified, uncomplicated; Z88.1 Allergy status to other antibiotic agents; Z79.899 Other long term (current) drug therapy; Z90.89 Acquired absence of other organs; Z90.711 Acquired absence of uterus with remaining cervical stump

== ENCOUNTER → 2025-05-31 | Outpatient (CLI) | payer OTHER ==
[~2025-05-31] MED LIST changes: +ABILIFY2 MG PO; +ADDERALL XR20 MG PO
== END | disposition home or self-care (01) ==
LOC: CT 08:00
PROVIDERS: ATTEND Family Medicine
DX: Z12.2 Encounter for screening for malignant neoplasm of respiratory organs (principal); F17.210 Nicotine dependence, cigarettes, uncomplicated

== ENCOUNTER 2025-09-22 11:39 | Emergency (ER) | payer OTHER ==
[2025-09-22 11:40] VITALS: BP 154/89
[2025-09-22] MEDS ORDERED: Albuterol Sulf/Ipratropium 3 ML VIAL NEB ONE (11:45)
[2025-09-22 11:56] LABS: BASO # 0.1 10*3/uL (0.0-0.1); BASO % 0.9 % (0.0-1.0); EOS # 0.3 10*3/uL (0.0-0.4); EOS % 3.2 % (1.0-4.0); MEAN CELL VOLUME 89.3 fl (81.0-99.0); MEAN CORPUSCULAR HGB 28.4 pg (27.0-31.0); MEAN PLATELET VOLUME 12.6 fl (9.6-12.3); MONO # 0.5 10*3/uL (0.1-1.0); MONO % 5.6 % (3.0-9.0); NEUT # 5.0 10*3/uL (2.3-7.9); NEUT % 54.2 % (47.0-73.0); NUCLEATED RED BLOOD CELL 0.0 % (0.0-0.0); NUCLEATED RED BLOOD CELL 0.0 10*3/uL (0.0-0.0); PLATELET COUNT AUTOMATED 228 10*3/uL (130-400); RED CELL DISTRI WIDTH 13.4 % (0-14.5)
[2025-09-22 12:14] LABS: BUN 12 mg/dl (9-23)
[2025-09-22] MEDS ORDERED: AZITHROMYCIN 250 MG TAB PO ONE (14:15)
[2025-09-22] MEDS ORDERED: PREDNISONE20 M1 PO (14:15)
[2025-09-22] MEDS ORDERED: AVPAK AZITHROM250 M1 PO (14:15)
== END 2025-09-22 14:33 | disposition home or self-care (01) ==
LOC: ED 11:39
PROVIDERS: Nurse Practitioner Family
DX: J45.909 Unspecified asthma, uncomplicated (principal); R07.89 Other chest pain; E66.9 Obesity, unspecified; F41.1 Generalized anxiety disorder; E78.5 Hyperlipidemia, unspecified; K21.9 Gastro-esophageal reflux disease without esophagitis; G40.909 Epilepsy, unspecified, not intractable, without status epilepticus; G43.909 Migraine, unspecified, not intractable, without status migrainosus; F17.210 Nicotine dependence, cigarettes, uncomplicated; Z87.440 Personal history of urinary (tract) infections; Z68.35 Body mass index [BMI] 35.0-35.9, adult; Z90.89 Acquired absence of other organs; Z90.710 Acquired absence of both cervix and uterus; Z88.8 Allergy status to other drugs, medicaments and biological substances